=== PATIENT | female | born 1975 | race Caucasian/White ===

== ENCOUNTER 2019-10-30 12:11 | Outpatient (CLI) | payer OTHER, SELFPAY ==
--- NOTE | ~2019-10-30 | MMUS_ITS ---
EXAMINATION: MM diagnostic maddie RT w radha, US breast RT limited HISTORY: Follow-up right breast masses TECHNIQUE: Additional 3-D tomosynthesis images of the right breast were performed and synthetic 2-D i mages were generated. CAD analysis was submitted and interpreted. High resolution right breast ultras ound was performed. COMPARISON: Comparison to multiple prior studies sequentially, with oldest reviewed study dated 04/16/2019. FINDINGS: MAMMOGRAPHIC FINDINGS: The breasts are heterogenously dense, which may obscure small masses. There are persistent clustered masses in the upper outer quadrant of the right breast, middle third. Largest measure measures approx imately 12 mm. ULTRASOUND: High-resolution ultrasound of the right breast: At 9:00, 3 cm from the nipple there is a circumscribed hypoechoic mass measuring 1.4 cm maximum dimen maurizio without posterior features or internal vascularity. There is an adjacent stable complicated 1 cm cyst. IMPRESSION: 1. Stable right breast masses, likely benign. 2. Recommend 6 month follow-up right breast ultrasound BI-RADS category 3, probably benign findings. Reviewed, dictated and finalized at location A. IMPRESSION: 1. Stable right breast masses, likely benign. 2. Recommend 6 month follow-up right breast ultrasound BI-RADS category 3, probably benign findings.
== END 2019-10-30 12:12 | disposition home or self-care (01) ==
PROVIDERS: PCP Family Medicine; Visit Provider Family Medicine
DX: R92.8 Other abnormal and inconclusive findings on diagnostic imaging of breast (principal)
CPT/HCPCS: 76642; 77061; 77065; G0279

== ENCOUNTER → 2020-06-01 14:44 | Outpatient (CLI) | payer OTHER, SELFPAY ==
--- NOTE | ~2020-06-01 | US_ITS ---
US breast RT limited 06/01/2020 14:58 Indication: Follow-up right breast masses Procedure: High-resolution ultrasound of the right breast Comparison: 10/30/2019 Findings: At 9:00, 3 cm from the nipple, there are 2 adjacent oval hypoechoic masses measuring 1.3 an d 0.8 cm maximum dimension. There is subtle posterior shadowing with low level internal echoes and th allison masses. Also at this location there are 2 adjacent hypoechoic masses the smaller measuring 5 mm w ith posterior shadowing. At 9:00, 3 cm from the nipple there is a lobulated hypoechoic mass with dens e posterior shadowing measuring 1.7 cm. This mass appears slightly larger than on prior examination a nd the posterior shadowing is new compared with prior study. No internal vascularity. Impression: 1: Slightly increased size of lobulated hypoechoic right breast mass at 9:00, 3 cm from the nipple me asuring 1.7 cm maximum dimension. There is also new posterior shadowing. Ultrasound-guided right alberto st biopsy recommended. The remainder of the right breast masses are likely benign. Six-month follow-u p recommended. BI-RADS CATEGORY 4-SUSPICIOUS ABNORMALITY RECOMMENDATION: Ultrasound-guided right breast biopsy recommended. Reviewed, dictated and finalized at location A. GENCY MEDICAL TECH Impression: 1: Slightly increased size of lobulated hypoechoic right breast mass at 9:00, 3 cm from the nipple measuring 1.7 cm maximum dimension. There is also new poste rior shadowing. Ultrasound-guided right breast biopsy recommended. The remainde r of the right breast masses are likely benign. Six-month follow-up recommended . BI-RADS CATEGORY 4-SUSPICIOUS ABNORMALITY RECOMMENDATION: Ultrasound-guided right breast biopsy recommended.
== END ==
PROVIDERS: PCP Physician Assistant; Visit Provider Physician Assistant
DX: N63.10 Unspecified lump in the right breast, unspecified quadrant (principal); R92.8 Other abnormal and inconclusive findings on diagnostic imaging of breast
CPT/HCPCS: 76642

== ENCOUNTER 2020-06-09 10:23 | Outpatient (CLI) | payer OTHER, SELFPAY ==
--- NOTE | ~2020-06-09 | MM_ITS ---
MM post biopsy invasive RT DATE: 06/09/2020 11:55 INDICATION: Post right 9:00 breast biopsy mammogram TECHNIQUE: Digital ML and cc views of right breast COMPARISON: 06/09/2020 right ultrasound-guided breast biopsy FINDINGS: A radiopaque biopsy marker is noted within a mass in the outer mid right breast at approxim ately 9:00 position. IMPRESSION: Successful biopsy of right 9:00 breast mass Reviewed, dictated and finalized at Location A. Reviewed, dictated and finalized at location A. [place] PHARMACY MANAGER
--- NOTE | ~2020-06-09 | US_ITS ---
EXAMINATION: US GUIDED NEEDLE BIOPSY DATE: 06/09/2020 11:48 SIZING MACHINE OPERATOR INDICATION: 9:00 up to 1.7 cm right breast mass TECHNIQUE AND FINDINGS: The risks and potential benefits of the procedure were discussed with the patient, and written inform ed consent was obtained. Timeout procedure was performed. After sterile preparation of the right alberto st, 1% lidocaine was utilized for local anesthesia. A 14G spring-loaded biopsy gun needle was advanced to the edge of the region of interest from a later al approach utilizing sonographic guidance. A total of 5 tissue core samples were obtained through t he lesion. An Inrad tissue marker clip was then placed at the biopsy site. Hemostasis was achieved. A sterile bandage was applied. The patient tolerated procedure well and there was no evidence of immediate complication. The patien t was given verbal instructions prior to departing from the department. A two view mammogram was perf ormed to document tissue marker clip placement. The tissue samples were submitted to surgical patholo gy for histologic analysis. IMPRESSION: 1. Successful ultrasound guided biopsy of right 9:00 breast mass with biopsy marker placement. Kaci ramirez refer to pathology report for histologic analysis. Reviewed, dictated and finalized at Location A. Reviewed, dictated and finalized at location A. NG MACHINE OPERATOR IMPRESSION: 1. Successful ultrasound guided biopsy of right 9:00 breast mass with biopsy m arker placement. Please refer to pathology report for histologic analysis.
== END 2020-06-09 10:24 | disposition home or self-care (01) ==
LOC: ANHIMG 10:26
PROVIDERS: Family Provider Hospitalist; PCP Physician Assistant; Visit Provider Physician Assistant
DX: N63.10 Unspecified lump in the right breast, unspecified quadrant (principal)
CPT/HCPCS: 19083; 88305

== ENCOUNTER → 2020-06-17 07:43 | Outpatient (CLI) | payer OTHER, SELFPAY ==
--- NOTE | ~2020-06-17 | MR_ITS ---
EXAMINATION: MR brain/brain stem wo/w con DATE: 06/17/2020 08:47 INDICATION: Multiple sclerosis. TECHNIQUE: Magnetic resonance imaging (MRI) of the brain and brainstem was performed without and with 17 mL MultiHance intravenous contrast. Sequences included sagittal and axial T1-weighted FLAIR, axia l T1-weighted FSE, axial diffusion-weighted FS EPI, sagittal T2-weighted FLAIR, axial T2*-weighted GR E, axial T2-weighted FLAIR Propeller, and axial T2-weighted Propeller. Postcontrast sequences include d axial, coronal, and sagittal T1-weighted FSE. Apparent diffusion coefficient (ADC) maps were create d. COMPARISON: None. FINDINGS: There is no intracranial hemorrhage, acute infarction, or abnormal intracranial mass lesion . The ventricles are normal in size. There is mild mucosal thickening in right maxillary sinus. The o rbits are normal. The mastoid air cells are normal. IMPRESSION: 1. Normal brain. Reviewed, dictated and finalized at location A. H OPENER HAND IMPRESSION: 1. Normal brain.
[2020-06-17 08:13] LABS: Estimated Glomerular Filt Rate > 60
== END ==
PROVIDERS: PCP Physician Assistant; Visit Provider Family Medicine
DX: G35 Multiple sclerosis (principal)
CPT/HCPCS: 70553; A9577

== ENCOUNTER 2024-08-01 12:25 | Outpatient (CLI) | payer OTHER, SELFPAY ==
--- NOTE | ~2024-08-01 | XR_ITS ---
CHEST RADIOGRAPH, PA AND LATERAL CLINICAL HISTORY: SOB . COMPARISON: 12/01/2014 TECHNIQUE: PA and lateral views of the chest. FINDINGS The cardiomediastinal silhouette is unremarkable. The lungs are clear. Visualized osseous structures and soft tissues are unremarkable. IMPRESSION: No focal infiltrate or effusion. Reviewed, dictated and finalized at location A.
--- OUTSIDE RECORDS SUMMARY | 2024-08-01 12:36 | XMS_ITS | Encounter Summary ---
Author Organization [facility] Healthcare Address [address] [place] [address] Care Team Providers Care Trencher Driver Name Role Phone Arthur Coreas MD Primary Care Provider [phone] Encounter Details Date Type Department Care Team (Late st Contact Info) Description 09/17/2020 Telephone [facility] - Imaging [facility] [place] [address] Transcribed Order, Provider Social History Tobacco Use Types Packs/Day Years Used Date Smoking Tobacco: Former Cigarettes 0.5 20 1 982 - 2001 Smokeless Tobacco: Never AUDIT-C Answer Date Recorded Q1: How often do you have a drink containing alc ohol? 2-3 times a week 09/02/2020 Q2: How many drinks containi ng alcohol do you have on a typical day when you are drinking? 1 or 2 09/02/2020 Q3: How often do you have si x or more drinks on one occasion? 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
--- OUTSIDE RECORDS SUMMARY | 2024-08-01 12:36 | XMS_ITS | Patient Health Summary ---
Author Organization [facility] [employer] Address [address] [place] [address] Care Team Providers Care Master Sonar Technician Name Role Phone Unavailable Primary Care Provider Fuentes e Note from [facility],non-owned Affiliates and Associated Physician Practices is amultiple site organization consisting of ambulatory clinics and hospital sitesin [place], [place], [place] and [place]. This disclosure is being madepursuant to the Care Everywhere program and may not contain all information available regarding this patient. Last updated 18.[facility] [employer] Allergies * Bee-sting [Other] Medications * Be aware that medications may not be up to date on this document. Alwaysverify current medications with the patient. * ATORVASTATIN CALCIUM PO * venlafaxine (EFFEXOR) 37.5 MG tablet Take 75 mg by mouth once daily * Albuterol Sulfate (VENTOLIN HFA IN) * EPINEPHrine (EPIPEN) 0.3 MG/0.3ML auto-injector pen Inject 0.3 mg into muscle once Social History Tobacco Use Types Packs/Day Years Used Date Smoking Tobacco: Former Cigarettes Q uit: 2001 Smokeless Tobacco: Never Sex and Gender Information Value Date Recorded Sex Assigned at Not on file Gender Identity Not on file Sexual Orientation Not on file Last Filed Vital Signs Vital Sign Reading Time Taken Comments Blood Pressure 118/76 09/03/2017 10:26 AM CDT Pulse 66 09/03/2017 10:26 AM CDT Temperature 36.9 C (98.5 F) 09/03/2017 10:26 AM CDT Respiratory Rate 16 09/03/2017 10:26 AM CDT Oxygen Saturation 98% 09/03/2017 10:26 AM CDT Inhaled Oxygen Concentration - - Weight 77.1 kg (170 lb) 09/03/2017 10:26 AM CDT Height 170.2 cm (5' 7 ) 09/03/2017 10:26 AM CDT Body Mass Index 26.63 09/03/2017 10:26 AM CDT Procedures * STREP A SCREEN - POINT OF CARE (AMB) STL(Performed 09/03/2017) Performed for Acute nasopharyngitis * STREP A SCREEN - POINT OF CARE (AMB) STL(Performed 04/24/2017) Performed for Acute pharyngitis, unspecified etiology Results * STREP A SCREEN (09/03/2017) Only the most recent of2 resultswithin the time period is included. Strep A Rapid POCT Negative Negative Strep A Internal Control Present Lot # [id number] Expiration Date [id number] Throat ENTIRE THROAT (SURFACE REGION OF NECK) / Unknown 09/03/2017 Yariel Palacio STEMHOLE BORER AND TOPPER-DECONTAMINATION TECHNICIAN LAB - POINT OF CARE ORDERABLES
--- OUTSIDE RECORDS SUMMARY | 2024-08-01 12:36 | XMS_ITS | Continuity of Care Document ---
Author Organization [facility] Address [address] [place] [address] Phone Care Team Providers Care Buyer Agent Name Role Phone Mandie Bal MD Unavailable Unavailable Procedures Procedure Date SCREENING COLONOSCOPY ; HIGH RISK Advance Directives Directive Yes / No Effective Date File Name No Information Encounters Encounter Description Practice Location Reason(s) For Visit Diagnoses Date Provider Providers Copied on Encounter [facility], [address], [place], [place], [id number], tel:[phone] GI SCOPES No Information Valeriano Lockwood. [facility] [address], [id number] , . tel:[phone] Referring Provider: Arthur Coreas, [address] [place], [address]. tel:[phone] Family History Family Member Type Diagnosis Age At Onset No Information Payers Payer name Insurance type Covered constitution party ID Authoriza tion(s) [facility] [id number] Social History Type Description Quantity Date Captured Comments Sex Female Smoking Status No Information Sexual Orientation Straight or heterosexual Gender Identity Female Chief Complaint And Reason For Visit No Information Reason For Referral Reason For Referral No Information History Of Present Illness Encounter Date Complaint History Of Prese nt Illness No Information Functional Status Date Functional Assessmen t No Information Instructions Date Instruction Additional Infor mation No Information Assessments Type Assessment Date No Information Patient Care Teams Name Effective Dates (start - stop) Status Members No Information
--- OUTSIDE RECORDS SUMMARY | 2024-08-01 12:36 | XMS_ITS | Clinical Summary ---
Author Organization [facility] D Address [address] [place] [id number] Care Team Providers Care General Operator Name Role Phone Arthur Coreas MD Primary Care Provider [phone] Allergies Active Allergy Reactions Criticality Noted Date Comments Bee Sting Kit Other (See comments) Low 04/24/2017 Reacted to skin test, carries epi pen Medications cetirizine (ZyrTEC) 10 mg tablet Take 1 tablet (10 mg total) by mouth every morning Active multivit-minerals /folic acid (CENTRUM MULTIGUMMIES ORAL) every morning Active epinephrine (EPIPEN INJ) Inject as directed as needed Active magnesium oxide (MAG-OX) 250 mg (150.8 mg elemental) tabletIndications :hypomagnesemia 1 tablet (250 mg total) every morning Active albuterol HFA (PROVENTIL HFA,VENTOLIN HFA,PROAIR HFA) 90 mcg/actuation inhaler Inhale 2 puffs as needed for wheezing Active fenofibrate (TRIGLIDE) 160 mg tablet 3 Active rasagiline (AZILECT) 1 mg tablet Take 1 tablet (1 mg total) by mouth every morning 90 tablet 3 4 08/13/19 25 Active atogepant (Qulipta) 60 mg tablet Take 60 mg by mouth daily 90 tablet 3 4 Active topiramate (TOPAMAX) 50 mg tablet Take 1 tablet (50 mg total) by mouth 2 (two) times a day 180 tablet 3 4 Active buPROPion (WELLBUTRIN) 100 mg tablet Take 1 tablet (100 mg total) by mouth 2 (two) times a day 180 tablet 3 5 06/16/19 26 Active amantadine (SYMMETREL) 100 mg capsule Take 1 capsule (100 mg total) by mouth 2 (two) times a day 180 capsule 3 5 06/16/19 26 Active venlafaxine 225 mg tablet extended release 24hr 24 hr tablet Take 1 tablet (225 mg total) by mouth daily 30 tablet 11 5 06/16/19 26 Active Active Problems Problem Noted Date Diagnosed Date New daily persistent headache 12/28/2023 Migraine with aura and with status migrainosus, not intractable 09/25/2023 Insomnia due to medical condition 07/11/2022 Anxiety 01/28/2021 Assessment & Plan (01/28/2021 6:38 PM CDT): Venlafaxine XR 75 mg daily Parkinsonism 09/09/2020 Assessment & Plan (02/07/2024 12:41 PM CDT): She has parkinsonism stage 2 by history characterized by right sided tremor, bilateral rigidity and right greater than left bradykinesia, with reduced right armswing, and previous subjective benefit from ropinirole XL and now some improvement with rasagiline monotreatment with reduction of tremor, stiffness and even improved cognition initially. Based on the pattern and progression of symptoms so far, the most likely etiology remains idiopathic Parkinson disease. Genetic testing did not reveal any pathogenic variants. Ceruloplasmin was previously checked and was normal at 37; she believes she had slit lamp exam to query Danelle Kerry rings with her ophthalm but she will check into this so we can effectively exclude Emmanuel disease. She had good benefit from Requip (ropinirole) XL however, she developed some impulsivity around spending and previously had some impulsivity around sex as well as bothersome swelling in one ankle and sleep attacks . All of these resolved when she stopped ropinirole. She tried carbi/levo and got up to taking fair doses (up to 3 tabs qid) but she noted bothersome peak dose dystonia (painful cramping of the right foot, some worsened dexterity that may have been dystonia in the right hand), possible peak dose dyskinesia in the toes and worsening of her migraine headaches). The dystonia resolved after stopping carbi/levo. Rasagiline has provided some benefit (less than ropinirole) but no side effects, however, she is still somewhat bothered by her symptoms. At this point, we will try amantadine, which may also provide a mild anti-parkinsonian effect. 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 Her anxiety is mildly is okay on her current doses of max dose venlafaxine and bupropion and we will continue those today. She has constipation currently controlled with Dulcolax. She is still very bothered by her migraines (has had these since 3rd grade) and we have referred her to our headache specialists in the past and she now sees them but is still having headaches on Qulipta and low dose topirimate. Recs: 1. Same rasagiline, start amantadine. 2. Same bupropion, same venlafaxine ER. 3. Consider adding buspirone for anxiety. 3. Sent info on APDA [employer] channel exercises. 4. Continue to f/u with [facility] specialists. 5. She is interested in all PD research. Assessment & Plan (08/29/2023 8:41 PM CDT): She has parkinsonism stage 2 characterized by right sided tremor (not visible today), bilateral rigidity and right greater than left bradykinesia, with reduced right armswing, and subjective benefit from ropinirole and levodopa with reduction of tremor, slowness, stiffness, but dose-limiting side effects including dyskinesia, dystonia, ICD. Based on the pattern and progression of symptoms so far, the most likely etiology remains idiopathic Parkinson disease. Genetic testing did not reveal any pathogenic variants. Ceruloplasmin was normal at 37, 24hr urine copper was normal at 14, and slit lamp exam showed no Danelle Kerry rings, excluding Emmanuel disease. She is having good benefit from rasagiline and it is reasonable to continue current medication regimen. She would likely benefit from occupational therapy for hand movements. Continue rasagiline. Continue venlafaxine and bupropion. Our office sent referral for OT for dexterity. Continue exercise. Let me know if talking or movements in sleep change. Assessment & Plan (07/02/2023 11:40 AM PACKAGER HEAD): She has parkinsonism stage 2 by history characterized by right sided tremor, bilateral rigidity and right greater than left bradykinesia, with reduced right armswing, and subjective benefit from ropinirole XL with reduction of tremor, stiffness and even improved cognition initially. Based on the pattern and progression of symptoms so far, the most likely etiology remains idiopathic Parkinson disease. Genetic testing did not reveal any pathogenic variants. Ceruloplasmin was previously checked and was normal at 37. I have recommended in the past that she complete 24 hour urine copper and at last visit, we sent this to [facility] in [place], [place] but she still has not done it; and she believes she had slit lamp exam to query Danelle Kerry rings with her ophthalm but she will check into this so we can effectively exclude Emmanuel disease. She had good benefit from Requip (ropinirole) XL however, she developed some impulsivity around spending and previously had some impulsivity around sex as well as bothersome swelling in one ankle and sleep attacks . All of these resolved when she stopped ropinirole. She tried carbi/levo and got up to taking fair doses (up to 3 tabs qid) but she noted bothersome peak dose dystonia (painful cramping of the right foot, some worsened dexterity that may have been dystonia in the right hand), possible peak dose dyskinesia in the toes and worsening of her migraine headaches. These have resolved since stopping carbi/levo but now she is more bothered by the slowness, stiffness and tremor. At this point, we will try rasagiline but we discussed that it has a very mild anti-parkinsonian effect. We could also consider addition of amantadine. We could also consider trying low dose levodopa again in the future. Her anxiety is mildly worse as is mood she is on max dose of venlafaxine XL to 225 mg. We will add bupropion today. She has constipation currently controlled with Miralax. She is still very bothered by her migraines (has had these since 3rd grade) and we will refer her to our headache specialists today. Recs: 1. Start rasagiline, could consider adding amantadine as well 2. Start bupropion. 3. Same venlafaxine XR. 3. Sent info on APDA youtube channel exercises. 4. Have already sent order for 24 hour urine copper to [facility] in [place], [place]. 5. Will refer to our [facility] specialists today. 6. She is interested in all PD research. Assessment & Plan (01/30/2023 4:27 PM CDT): She has parkinsonism stage 2 by history characterized by right sided tremor, bilateral rigidity and right greater than left bradykinesia, with reduced right armswing, and subjective benefit from ropinirole XL with reduction of tremor, stiffness and even improved cognition initially. Based on the pattern and progression of symptoms so far, the most likely etiology remains idiopathic Parkinson disease. Genetic testing did not reveal any pathogenic variants. Ceruloplasmin was previously checked and was normal at 37. I have recommended in the past that she complete 24 hour urine copper and at last visit, we sent this to [facility] in [place], [place] but she still has not done it; and she believes she had slit lamp exam to query Danelle Kerry rings with her ophthalm but she will check into this so we can effectively exclude Emmanuel disease. She is having good benefit from Requip (ropinirole) XL however, possible side effects are becoming bothersome. She still has some impulsivity around spending and previously had some impulsivity around sex. She has also developed bothersome swelling in one ankle. It is unclear whether this is related to the ropinirole but it could be. Lastly and most importantly, she is noting sleep attacks that could come on quickly and she is no longer driving. This could also be related to ropinirole and she denies any apneic symptoms at night. We will stop the ropinirole XL and start carbi/levo. If symptoms of PD worsen, we may need a bigger dose but will start with titration to 1 tab tid. If these side effects (unilateral ankle swelling, sleep attacks) do not improve off of ropinirole, she may need further workup as they could be unrelated to PD. Her anxiety is mildly worse as is mood and we will increase venlafaxine XL to 225 mg (max dose). She has constipation currently controlled with Miralax. 1. Stop ropinirole, see if side effects (ankle swelling, daytime sleepiness, impulse control) improve. 2. Start carbi/levo as directed, report in 2 weeks or sooner if side effects. 3. Increase venlafaxine XR as directed. 4. Sent info on APDA youtube channel exercises. 5. Have already sent order for 24 hour urine copper to [facility] in [place], [place]. 6. She is interested in all PD research. Assessment & Plan (07/11/2022 2:32 PM PACKAGER HEAD): She has parkinsonism stage 2 by history characterized by right sided tremor, bilateral rigidity and right greater than left bradykinesia, with reduced right armswing, and subjective benefit from ropinirole XL with reduction of tremor, stiffness and improved cognition. Based on the pattern and progression of symptoms so far, the most likely etiology remains idiopathic Parkinson disease. Genetic testing did not reveal any pathogenic variants. Ceruloplasmin was previously checked and was normal at 37. I have recommended in the past that she complete 24 hour urine copper and we will send this to [facility] in [place] and she believes she had slit lamp exam to query Danelle Kerry rings with her ophthalm but she will check into this so we can effectively exclude Emmanuel disease. She is having good benefit from Requip (ropinirole) XL and we will not increase the dose as she does have some impulse control issues around spending and coin collecting as well as past impulses regarding sex. That said, she does not believe this issues are great enough to switch to carbi/levo at this time. Her anxiety is worse as is mood and we will increase venlafaxine. She has some issues with middle insomnia and can first try melatonin 3-6 mg 1-2 hours before bed and if no improvement, we could consider trazodone as she has no RBD. She has constipation and should start Miralax. 1. Same ropinirole, watch impulse control. 2. Start melatonin, consider trazodone if needed. 3. Increase venlafaxine. 4. Sent info on APDA youtube channel exercises. 5. Will send order for 24 hour urine copper to [facility] in [place], [place]. 6. She is interested in all PD research. Assessment & Plan (02/12/2022 11:50 AM CDT): She has parkinsonism stage 2 characterized by right sided tremor (not visible today), bilateral rigidity and right greater than left bradykinesia, with reduced right armswing, and subjective benefit from ropinirole with reduction of tremor. Based on the pattern and progression of symptoms so far, the most likely etiology remains idiopathic Parkinson disease. Genetic testing did not reveal any pathogenic variants. Ceruloplasmin was previously checked and was normal at 37. I have recommended in the past that she complete 24 hour urine copper and slit lamp exam to query Danelle Kerry rings to complete this evaluation, which could effectively exclude Emmanuel disease. Our office has sent orders but there are no results available for review. She is having good benefit from Requip (ropinirole) XL but we may be able to adjust the dosage to try to increase quality and consistency of benefit including control of hand movements and maybe increased dexterity. 1. Increase ropinirole XL from 8mg to 12mg at night. She will send update in 2-3 weeks on dexterity and wordfinding. If wordfinding is worse we could consider tapering ropinirole and changing to carbidopa-levodopa. Assessment & Plan (02/03/2021 2:56 PM CDT): She has Parkinson disease stage 1 characterized by right sided rigidity and mild bradykinesia, with reduced right armswing. She has subjective benefit from ropinirole. Based on the pattern and progression of symptoms so far, the most likely etiology may be idiopathic Parkinson disease. Her mother is adopted and she does not know her mother's family history, so it may be reasonable to consider a genetic etiology given her young age at onset, although this may not oil changer for her symptoms. Given her age it is reasonable to exclude other etiologies including Emmanuel disease. Her ceruloplasmin was previously checked and was normal at 37. It is reasonable to obtain 24 hour urine copper and slit lamp exam to query Danelle Kerry rings to complete this evaluation, which would effectively exclude Emmanuel disease if normal. She is reasonably well treated at this time. I suggested continuing the same dose of ropinirole 8mg ER each morning. She will call me if symptoms change and we can consider an adjustment in medication as needed. She would benefit from physical therapy to establish a baseline and for recommendations for exercises to keep balance and walking as sharp as possible. 1. Our office to send orders for a 24-hour urine copper test and referral for a slit-lamp exam to look for Danelle-Kerry rings, can be done locally, with instructions to fax results to our office. 2. Continue same ropinirole ER 8mg daily. 3. I will send referral to [facility] physical therapy. 4. I will send referral to Genetics clinic. Assessment & Plan (01/28/2021 6:37 PM CDT): Mild masked facies, mild rigidity/cogwheeling right arm, decreased rapid altered movements in the right hand, mild shuffling right leg and decreased right arm swing with ambulation. MRI scan of the brain 06/17/20: Mild ventriculomegaly, but no obstruction. Mild generalized atrophy. No white matter lesions. Ropinrole XL 8 mg daily. Risks discussed including leg edema, hypersomnolence in addictive behaviors such as excessive gambling or shopping. Referral to [facility]; appointment with Dr. Ritesh Brennan scheduled on February 02, 2021. Will defer to Dr. Brennan for genetic screening, but no family history of Parkinson's disease. Breast mass 07/12/2020 Resolved Problems Problem Noted Date Diagnosed Date Resolved Date Abnormality of gait due to i mpairment of balance 09/09/2020 01/28/2021 Encounters Date Type Department Care Team Description 07/18/2024 11:00 AM PACKAGER HEAD Telemedicine [facility] General Neurology [address] [place] [address] Kailey Roa PA Migraine with aura and with status migrainosus, not intractable (Primary Dx); New daily persistent headache; Dizziness and giddiness; Weight loss 05/26/2024 Telephone [facility] Movement Disorders [address] [place] [phone] Kristine Gambino RN 05/23/2024 Documentation [facility] Movement Disorders [address] [place] [phone] Yoly Juarez CMA 05/16/2024 8:57 AM PACKAGER HEAD - 05/16/2024 11:59 PM PACKAGER HEAD Hospital Encounter [facility] Bld[address] 1 [facility] [address] [place] [address] Other abnormal and inconclusive findings on diagnostic imaging of breast Discharge Disposition: Discharge to home or self care 05/15/2024 Telephone [facility] Movement Disorders [address] [place] [phone] Kristine Gambino RN 05/09/2024 8:36 AM PACKAGER HEAD - 05/09/2024 11:59 PM PACKAGER HEAD Hospital Encounter [facility] 1 Breast [facility] [address] [facility] [address] [place] [address] Screening mammogram, encounter for Discharge Disposition: Discharge to home or self care from Last 3 Months Immunizations Immunization Administration Dates Next Due Influenza, Unspecified 04/26/2021(Deferred: Yelena ent decision) Surgical History Surgery Date Site/Laterality Comments WISDOM TOOTH EXTRACTION COLONOSCOPY BREAST BIOPSY Medical History Medical History Date Comments Dyslipidemia Depression Family History Medical History Relation Name Comments Colon cancer Father Colon cancer Father's Brother Anesthesia problems Neg Hx Parkinsonism Neg Hx Relation Name Status Comments Father Father's Brother Mother Other her mother is a dopted Social History Tobacco Use Types Packs/Day Years Used Date Smoking Tobacco: Former Cigarettes 0.5 20 1 982 - 2001 Smokeless Tobacco: Never Tobacco Cessation:Counseling Given: Not Answered AUDIT-C Answer Date Recorded Q1: How often [...] on file Legal Sex Female 9:35 AM PACKAGER HEAD Gender Identity Female 09/06/2020 8:02 PM CDT Sexual Orientation Straight 07/11/2020 3: 26 PM PACKAGER HEAD Occupation Industry Job Start Date Job End Date 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 Not on file Not on file Not on file Obstetrics History Para Term AB IAB SAB Ectopic Multiple Livin g Live Births 4 3 3 Date Outcome GA Total Labor Labor/2nd/3rd Weight Sex Type Anes PTL Tanya A1 A5 Name Clin Term Term Term Last Filed Vital Signs Vital Sign Reading Time Taken Comments Blood Pressure 120/83 09/25/2023 9:45 AM CDT Pulse 71 09/25/2023 9:45 AM CDT Temperature 36.9 C (98.5 F) 09/25/2023 9:45 AM CDT Respiratory Rate 20 04/26/2021 9:56 AM PACKAGER HEAD Oxygen Saturation 100% 09/25/2023 9:45 AM CDT Inhaled Oxygen Concentration - - Weight 89.4 kg (197 lb) 09/25/2023 9:45 AM CDT Height 167.6 cm (5' 6 ) 09/25/2023 9:45 AM CDT Body Mass Index 31.8 09/25/2023 9:45 AM CDT Plan of Treatment Health Maintenance Due Date Last Done Comments Cervical Cancer Screening 1974 Colon Cancer Screening-Colonoscopy 1974 Depression Screening 1974 Hepatitis C Screening 1974 DTaP/Tdap/Td Vaccine (1 - Tdap) 1985 Hepatitis B Screening 1992 Regular Well Visit/Exam 18-64 1992 Covid-19 Vaccine (2 - season) 2024 02/18/2021 Influenza Vaccine (#1) 2024 Zoster Vaccine (1 of 2) 2024 Breast Cancer Screening-Mammogram 05/16/2025 05/16/2024, 05/09/2024, 09/15/2022, Additional history exists Pneumococcal vaccine <65 Aged Out No longer eligible based on patient's age to complete this topic Procedures Procedure Name Priority Date/Time Associated Diagnosis Comments DIAGNOSTIC MAMMOGRAM BILATERAL W SPEEDY Schedule Routine, Read Routine (OP Routine) 05/16/2024 9:20 AM PACKAGER HEAD Other abnormal and inconclusive findings on diagnostic imaging of breast SCREENING MAMMOGRAM BILATERAL W SPEEDY Schedule Routine, Read Routine (OP Routine) 05/09/2024 8:57 AM PACKAGER HEAD Screening mammogram, encounter for from Last 3 Months Results * Diagnostic Mammogram Bilateral W Speedy (05/16/2024 9:20 AM PACKAGER HEAD) Anatomical Region Laterality Modality Breast Bilateral Mammography 05/16/2024 9:30 AM PACKAGER HEAD Narrative 05/16/2024 9:36 AM PACKAGER HEAD EXAM DESCRIPTION: DIAGNOSTIC MAMMOGRAM BILATERAL W SPEEDY REASON FOR STUDY: 48-year-old female recalled from screening mammogram for right breast grouped calcifications and a left breast asymmetry. TECHNIQUE: Full field LM views of the bilateral breasts and spot compression MLO view of the left breast were obtained with digital technique using breast tomosynthesis with C view. Spot magnification CC and LM views of the right breast were obtained with 2D digital technique. COMPARISON: 05/09/2024, 09/15/2022 FINDINGS: DENSITY: There are scattered areas of fibroglandular density. MAMMOGRAM FINDINGS: There is a 6 mm group of calcifications at the 9 o'clock position of the right breast, middle depth, which is new since August 2022. These calcifications appear amorphous/smudgy on the spot magnification CC view possible dependent layering on the spot magnification LM view, suggesting benign milk of calcium. There is no definite associated mass or architectural distortion. The asymmetry of concern in the lower left breast, posterior depth, on the MLO view effaces with spot compression, evidence of benign summation artifact of normal dense tissue. There is no suspicious finding in the left breast on mammogram. IMPRESSION: 1. Right breast 6 mm group of calcifications at 9 o'clock, middle depth, is probably benign. This may represent benign milk of calcium. Short-term follow-up with right diagnostic mammogram in 6 months is recommended. 2. The MLO view asymmetry of concern in the posterior lower left breast disperses with spot compression, evidence of benign superimposed dense tissue. 3. No new suspicious finding in the left breast on mammogram. Screening mammography of the left breast in 1 year is recommended. BIRADS: 3 - Probably benign finding, short-interval follow-up suggested. I discussed these findings and recommendations with the patient at the time of the examination. THIS IS AN ELECTRONICALLY VERIFIED FINAL REPORT 05/16/2024 9:36 AM - Electronically signed by Miguel Gu M.D., MD: Report ID: [id number] Reading Location: [facility] us Arthur Coreas MD IMG MAMMO PROCEDURES Final Re sult * (ABNORMAL) Screening Mammogram Bilateral W Speedy (05/09/2024 8:57 AM PACKAGER HEAD) Anatomical Region Laterality Modality Breast Bilateral Mammography Addenda Addendum by Lila Rowland MD on 05/12/2024 1:10 PM PACKAGER HEAD CORRECTION TO IMPRESSION: IMPRESSION: BI-RADS ATLAS category (overall): 0 - Incomplete: Needs Additional Imaging Evaluation Indeterminate bilateral breast asymmetries. Further evaluation with bilateral diagnostic mammography and possible diagnostic breast ultrasound is recommended. The patient has been or will be contacted.Indeterminate bilateral breast asymmetries. Further evaluation with bilateral diagnostic mammography and possible diagnostic breast ultrasound is recommended. The patient has been or will be contacted. Impressions 05/09/2024 11:10 AM PACKAGER HEAD BI-RADS ATLAS category (overall): 0 - Incomplete: Needs Additional Imaging Evaluation There is no mammographic evidence of malignancy. A 1 year screening mammogram is recommended. The patient has been or will be contacted. We recommend annual screening mammography for women at average risk of breast cancer beginning at age 40, based on guidelines of the [place] [employer] (ACR Practice Parameter for the Performance of Screening and Diagnostic Mammography) and [place] [employer]. For women with and elevated risk of breast cancer, please refer to the ACR Practice Parameter for specific screening recommendations. The patient will be entered into a reminder system with a target due date of 1 year for her next screening exam. Narrative 05/09/2024 11:10 AM PACKAGER HEAD Screening Mammogram Bilateral W Speedy: 05/09/24 The study was acquired using full field digital technology and interpreted from soft copy. 2D digital mammographic views, as well as 3D digital tomosynthesis were performed in the CC and MLO projections. This study was resulted using Computer-Aided Detection (CAD). CLINICAL: Screening mammogram, encounter for. No relevant medical history has been documented for this patient. No known family history of breast cancer. COMPARISONS: 09/15/2022 Screening Mammogram Bilateral W Speedy 09/02/2020 US Guided Breast Localization Right 09/02/2020 Radiologic Examination of Surgical Specimen 09/02/2020 Mammo Post Clip Placement Right 09/02/2020 MEDICAL IMAGING MAMMOGRAPHY SUBFOLDER BREAST TISSUE: There are scattered areas of fibroglandular density. FINDINGS: There is a cluster of calcifications at the 9 o'clock position of the right breast, middle depth at the site of the previous biopsy. There is also an symmetry in the posterior left breast seen on the MLO view only. No otherIndeterminate bilateral breast asymmetries. Further evaluation with bilateral diagnostic mammography and possible diagnostic breast ultrasound is recommended. The patient has been or will be contacted. suspicious masses, suspicious calcifications, or other suspicious findings are seen within either breast. us Self Screening Mammogram IMG MAMMO PROCEDURES Ed ited Result - Final from Last 3 Months Insurance [facility] CHOICE PLUS [facility] CHO[facility] PLUS [facility] CHOICE PLUS Care Teams General Operator Relationship Specialty Start Date End Date Arthur Coreas MD [address] [place] [address] PCP - General Family Medicine 06/28/20
--- OUTSIDE RECORDS SUMMARY | 2024-08-01 12:36 | XMS_ITS | Referral Summary ---
Author Organization [facility] [employer] Address [address] [address] Care Team Providers Care Ornamental Plasterer Helper Name Role Phone Unavailable Primary Care Provider Unavailabl e Source Comments [facility] [employer],non-owned Affiliates and Associated Physician Practices is amultiple site organization consisting of ambulatory clinics and hospital sitesin [place], [place], [place] and [place]. This disclosure is being madepursuant to the Care Everywhere program and may not contain all information available regarding this patient. Last updated 18.[facility] [employer] Allergies Active Allergy Reactions Criticality Noted Date Comments Bee-sting [Other] 04/24/2017 Medications * Be aware that medications may not be up to date on this document. Alwaysverify current medications with the patient. Medication Sig Dispensed Refills Start Date End Date Status ATORVASTATIN CALCIUM PO Active venlafaxine (EFFEXOR) 37.5 MG tablet Take 75 mg by mouth once daily Active Albuterol Sulfate (VENTOLIN HFA IN) Active EPINEPHrine (EPIPEN) 0.3 MG/0.3ML auto-injector pen Inject 0.3 mg into muscle once Active Social History Tobacco Use Types Packs/Day Years [...] Mass Index 26.63 09/03/2017 10:26 AM CDT Plan of Treatment Not on file
--- OUTSIDE RECORDS SUMMARY | 2024-08-01 12:36 | XMS_ITS | Referral Summary ---
Author Organization [facility] Address [address] [place] [address] Care Team Providers Care Disaster Recovery Specialist Name Role Phone Arthur Coreas MD Primary Care Provider [phone] Encounters Date Type Department Care Team Description 07/18/2024 11:00 AM MANAGER LOGISTIC Telemedicine [facility] General Neurology [address] [place] [address] Kailey Roa PA Migraine with aura and with status migrainosus, not intractable (Primary Dx); New daily persistent headache; Dizziness and giddiness; Weight loss 05/26/2024 Telephone [facility] Movement Disorders [address] [place] [address] [phone] Kristine Gambino RN 05/23/2024 Documentation [facility] Movement Disorders [address] [place] [address] [phone] Yoly Juarez CMA 05/16/2024 8:57 AM MANAGER LOGISTIC - 05/16/2024 11:59 PM MANAGER LOGISTIC Hospital Encounter [facility] Medical Office Bldg 1 Breast [facility] [address] [place] [address] Other abnormal and inconclusive findings on diagnostic imaging of breast Discharge Disposition: Discharge to home or self care 05/15/2024 Telephone [facility] Movement Disorders [address] [place] [address] [phone] Kristine Gambino, RN 05/09/2024 8:36 AM MANAGER LOGISTIC - 05/09/2024 11:59 PM MANAGER LOGISTIC Hospital Encounter [facility] Medical Office Bldg 1 Breast [facility] [facility] [address] [place] [address] Screening mammogram, encounter for Discharge Disposition: Discharge to home or self care from Last 3 Months Allergies Active Allergy Reactions Criticality Noted Date [...] for anxiety. 3. Sent info on [employer] youtube channel exercises. 4. Continue to f/u with [...] change. Assessment & Plan (07/02/2023 11:40 AM MANAGER LOGISTIC): She has parkinsonism stage 2 by history [...] at last visit, we sent this to [facility] in [place], [place] but she still has not done [...] order for 24 hour urine copper to [facility] in [place]. 5. Will refer to our [place] [...] at last visit, we sent this to [facility] in [place] but she still has not done [...] order for 24 hour urine copper to [facility] in [place]. 6. She is interested in all PD research. Assessment & Plan (07/11/2022 2:32 PM MANAGER LOGISTIC): She has parkinsonism stage 2 by history [...] copper and we will send this to [facility] in [place] and she believes she had slit [...] order for 24 hour urine copper to [facility] in [place]. 6. She is interested in all [...] age at onset, although this may not loom changer for her symptoms. Given her age [...] daily. 3. I will send referral to [facility] physical therapy. 4. I will send [...] as excessive gambling or shopping. Referral to [facility] Movement Disorders Clinic; appointment with Dr. Ritesh Brennan scheduled on February 02, 2021. Will defer to Dr. Brennan for genetic screening, but no family history of Parkinson's disease. 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 Not on file Not on file Not on file Last Filed Vital Signs Vital Sign Reading Time Taken Comments Blood Pressure 120/83 09/25/2023 9:45 AM CDT Pulse 71 09/25/2023 9:45 AM CDT Temperature 36.9 C (98.5 F) 09/25/2023 9:45 AM CDT Respiratory Rate 20 04/26/2021 9:56 AM MANAGER LOGISTIC Oxygen Saturation 100% 09/25/2023 9:45 AM CDT Inhaled Oxygen Concentration - - Weight 89.4 kg (197 lb) 09/25/2023 9:45 AM CDT Height 167.6 cm (5' 6 ) 09/25/2023 9:45 AM CDT Body Mass Index 31.8 09/25/2023 9:45 AM CDT Plan of Treatment Not on file Procedures Procedure Name Priority Date/Time Associated Diagnosis Comments DIAGNOSTIC MAMMOGRAM BILATERAL W SPEEDY Schedule Routine, Read Routine (OP Routine) 05/16/2024 9:20 AM MANAGER LOGISTIC Other abnormal and inconclusive findings on diagnostic imaging of breast SCREENING MAMMOGRAM BILATERAL W SPEEDY Schedule Routine, Read Routine (OP Routine) 05/09/2024 8:57 AM MANAGER LOGISTIC Screening mammogram, encounter for from Last 3 Months Results * Diagnostic Mammogram Bilateral W Speedy (05/16/2024 9:20 AM MANAGER LOGISTIC) Anatomical Region Laterality Modality Breast Bilateral Mammography 05/16/2024 9:30 AM MANAGER LOGISTIC Narrative 05/16/2024 9:36 AM MANAGER LOGISTIC EXAM DESCRIPTION: DIAGNOSTIC MAMMOGRAM BILATERAL W SPEDEY REASON FOR STUDY: 48-year-old female recalled from [...] AM - Electronically signed by Miguel Gu M.D. MD: Report ID: [id number] Reading [facility] Arthur Coreas MD IMG MAMMO PROCEDURES Final Re sult * (ABNORMAL) Screening Mammogram Bilateral W Speedy (05/09/2024 8:57 AM MANAGER LOGISTIC) Anatomical Region Laterality Modality Breast Bilateral Mammography Addenda Addendum by Lila Rowland MD on 05/12/2024 1:10 PM MANAGER LOGISTIC CORRECTION TO IMPRESSION: IMPRESSION: BI-RADS ATLAS category [...] will be contacted. Impressions 05/09/2024 11:10 AM MANAGER LOGISTIC BI-RADS ATLAS category (overall): 0 - Incomplete: Needs Additional Imaging Evaluation There is no mammographic evidence of malignancy. A 1 year screening mammogram is recommended. The patient has been or will be contacted. We recommend annual screening mammography for women at average risk of breast cancer beginning at age 40, based on guidelines of the [employer] (ACR Practice Parameter for the Performance of Screening and Diagnostic Mammography) and [employer]. For women with and elevated risk of breast cancer, please refer to the ACR Practice Parameter for specific screening recommendations. The patient will be entered into a reminder system with a target due date of 1 year for her next screening exam. Narrative 05/09/2024 11:10 AM MANAGER LOGISTIC Screening Mammogram Bilateral W Speedy: 05/09/24 The [...] - Final from Last 3 Months Insurance [facility] CHOICE PLUS [facility] CHOICE PLUS [facility] CHOICE PLUS Care Teams Disaster Recovery Specialist Relationship Specialty Start Date End Date Arthur Coreas MD [address] [place] [address] [place] [address] PCP - General Family Medicine 06/28/20
--- OUTSIDE RECORDS SUMMARY | 2024-08-01 12:36 | XMS_ITS | Clinical Summary ---
Author Organization [facility] [employer] Address [facility] [place] [address] Care Team Providers Care Tester Operator Helper Name Role Phone Unavailable Primary Care Provider Unavailabl e Source Comments [facility] [employer],non-owned Affiliates and Associated Physician Practices is amultiple site organization consisting of ambulatory clinics and hospital sitesin [place], [place], [place] and [place]. This disclosure is being madepursuant to the Care Everywhere program and may not contain all information available regarding this patient. Last updated 18.[facility] [employer] Allergies Active Allergy Reactions Criticality Noted Date [...] Inject 0.3 mg into muscle once Active Family History Medical History Relation Name Comments Cancer - Colon Father Hyperlipidemia Father Hyperlipidemia Mother Relation Name Status Comments Father Mother Social History Tobacco Use Types Packs/Day Years [...] 09/03/2017 10:26 AM CDT Plan of Treatment Health Maintenance Due Date Last Done Comments COLOGUARD (AGES 45-75) - COL ON CA SCREENING 1974 COLON MONITORING 1974 COLONOSCOPY - COLON CA SCREENING 1974 CT COLONOGRAPHY - COLON CA SCREENING 1974 Colorectal Cancer Screening 1974 FIT - COLON CA SCREENING 1974 FLEX SIG - COLON CA SCREENING 1974 MAMMOGRAM 1974 PAP SMEAR 1974 HIV SCREENING 1989 HEPATITIS C SCREENING 06/05/1992 DTAP/TDAP/TD VACCINES (1 - Tdap) 1993 HEPATITIS B VACCINE (1 of 3 - 19+ 3-dose series) 1993 SCREENING FOR DIABETES 04/24/2017 COVID-19 VACCINE (1 - 2023-2 5 season) 2024 INFLUENZA VACCINE (#1) 2024 DEPRESSION SCREENING 05/21/2024 PNEUMOCOCCAL VACCINE 50+ (1 of 1 - PCV) 2024 ZOSTER VACCINE (1 of 2) 2024 HIB VACCINE Aged Out No longer eligi ble based on patient's age to complete this topic HPV VACCINE Aged Out No longer eligi ble based on patient's age to complete this topic MENINGOCOCCAL (Group B) VACC INE SHARED DECISION-MAKING Aged Out No longer eligibl e based on patient's age to complete this topic MENINGOCOCCAL GROUPS A/C/Y/W VACCINE Aged Out No longer eligible b ased on patient's age to complete this topic PNEUMOCOCCAL VACCINE Aged Out No long er eligible based on patient's age to complete this topic
== END 2024-08-01 12:26 | disposition home or self-care (01) ==
PROVIDERS: PCP Family Medicine
DX: R06.02 Shortness of breath (principal); R63.4 Abnormal weight loss
CPT/HCPCS: 71046

== ENCOUNTER 2025-03-16 01:50 | Day surgery (SDC) | payer OTHER, BC, SELFPAY ==
[2025-03-04 14:18] VITALS: BMI 18.8
--- OUTSIDE RECORDS SUMMARY | 2025-03-16 01:52 | XMS_ITS | Encounter Summary ---
Author Organization [facility] Address [address] [place] [address] Care Team Providers Care Design Supervisor Name Role Phone Arthur Coreas MD Primary Care Provider [phone] Encounter Details Date Type Department Care Team (Late st Contact Info) Description 02/16/2025 Results Follow-Up [facility] Medical Group Obstetrical Gynecology [address] [phone] Chetna Roblero MD [facility] [address] Surgical pathology Social History Tobacco Use Types Packs/Day Years Used Date Smoking Tobacco: Former Cigarettes 0.5 20 1 982 - 2001 Smokeless Tobacco: Never Alcohol Use Standard Drinks/Week Comments Never 0 (1 standard drink = 0.6 oz pur e alcohol) Social Connection and Isolation Panel Answer Date Recorded In a typical week, how many times do you talk on the phone with family, friends, or neighbors? More than three times a week 01/28/2025 How often do you get togethe r with friends or relatives? More than three times a week 01/28/2025 How often do you attend chur ch or sabianist services? 1 to 4 times per year 01/28/2025 Do you belong to any clubs o r organizations such as buddhism groups, unions, fraternal or athletic groups, or school groups? No 01/28/2025 How often do you attend meet ings of the clubs or organizations you belong to? Never 01/28/2025 Are you , , di vorced, , never , or living with a partner? 01/28/2025 AUDIT-C Answer Date Recorded Q1: How often do you have a drink containing alcohol? Never 02/03/2025 Q2: How many drinks containi ng alcohol do you have on a typical day when you are drinking? Patient does not drink Q3: How often do you have si x or more drinks on one occasion? Never 02/03/2025 Overall Financial Resource Strain (CARDIA) Answe r Date Recorded How hard is it for you to pa y for the very basics like food, housing, medical care, and heating? Not very hard 01/28/2025 Hunger Vital Sign Answer Date Recorded Within the past 12 months, y ou worried that your food would run out before you got the money to buy more. Never true 01/29/20 25 Within the past 12 months, t he food you bought just didn't last and you didn't have money to get more. Never true 01/28/2025 PRAPARE - Transportation Answer Date Re corded In the past 12 months, has l ack of transportation kept you from medical appointments or from getting medications? No 01/19 In the past 12 months, has l ack of transportation kept you from meetings, work, or from getting things needed for daily living? No 01/28/2025 Housing Stability Vital Sign Answer Crow e Recorded In the last 12 months, was t here a time when you were not able to pay the mortgage or rent on time? No 01/28/2025 In the past 12 months, how m any times have you moved where you were living? 0 01/28/2025 At any time in the past 12 m [facility], were you homeless or living in a jail (including now)? No 01/28/2025 [facility] Utilities Answer Date Recorded In the past 12 months has th e electric, gas, oil, or water company threatened to shut off services in your home? No 01/28/2025 Personal Safety Answer Date Recorded Have you ever been in or are you currently in a harmful physical or emotional relationship or is someone making you feel afraid or unsafe? 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
--- OUTSIDE RECORDS SUMMARY | 2025-03-16 01:52 | XMS_ITS | Clinical Summary ---
Author Organization [facility] [employer] Address [facility] [place] [address] Care Team Providers Care Cardiopulmonary Technician And Eeg Tech Name Role Phone Unavailable Primary Care Provider Unavailabl e Source Comments [facility] [employer],non-owned Affiliates and Associated Physician Practices is amultiple site organization consisting of ambulatory clinics and hospital sitesin [place], [place], [place] and [place]. This disclosure is being madepursuant to the Care Everywhere program and may not contain all information available regarding this patient. Last updated 18.[employer] Allergies Active Allergy Reactions Criticality Noted Date Comments Bee-sting [Other] 04/24/2017 Medications * Be aware that medications may not be up to date on this document. Alwaysverify current medications with the patient. ATORVASTATIN CALCIUM PO Active venlafaxine (EFFEXOR) 37.5 [...] Cigarettes Q uit: 2001 Smokeless Tobacco: Never Comments No Sex and Gender Information Value Date Recorded Sex Assigned at Not on file Legal Sex Female 12:39 PM MIDDLEWARE ARCHITECT Gender Identity Not on file Sexual Orientation [...] 10:26 AM CDT Height 170.2 cm (5' 7) 09/03/2017 10:26 AM CDT Body Mass Index [...] - COLON CA SCREENING 1974 MAMMOGRAM 1974 HIV SCREENING 1989 HEPATITIS C SCREENING 06/05/1992 DTAP/TDAP/TD VACCINES (1 - Tdap) 1993 HEPATITIS B VACCINE (1 of 3 - 19+ 3-dose series) 1993 SCREENING FOR DIABETES 04/24/2017 DEPRESSION SCREENING 05/21/2024 PNEUMOCOCCAL VACCINE 50+ (1 of 1 - PCV) 2024 ZOSTER VACCINE (1 of 2) 2024 COVID-19 VACCINE (1 - 2023-2 5 season) 2025 INFLUENZA VACCINE (#1) 2025 HIB VACCINE Aged Out No longer eligi [...] on patient's age to complete this topic Insurance [facility]
--- OUTSIDE RECORDS SUMMARY | 2025-03-16 01:52 | XMS_ITS | Encounter Summary ---
Author Organization [facility] Address [address] [place] [address] Phone Care Team Providers Care Power Cleaner Operator Name Role Phone Arthur Coreas MD Primary Care Provider [phone] Encounter Details Date Type Department Care Team (Late st Contact Info) Description 01/27/2025 Results Follow-Up [facility] Medicine Movement Disorders [address] Advanced Medicine 7th [place] [address] Karen Soria MD [address] [place] [address] Urinalysis reflex to microscopic and culture Urine, CBC with auto differential, Urinalysis, microscopic only, Additional followed-up results: 7 Social History Tobacco Use Types Packs/Day Years Used Date Smoking Tobacco: Former Cigarettes 0.5 20 1 982 - 2002 Smokeless Tobacco: Never Social Connection and Isolation Panel Answer Date Recorded In a typical week, how many times do you talk on the phone with family, friends, or neighbors? More than three times a week 01/28/2025 How often do you get togethe r with friends or relatives? More than three times a week 01/28/2025 How often do you attend [facility] or jain services? 1 to 4 times per year 01/28/2025 Do you belong to any clubs o r organizations such as islam groups, unions, fraternal or athletic groups, or school groups? No 01/28/2025 How often do you attend meet ings of the clubs or organizations you belong to? Never 01/28/2025 Are you , , di vorced, , never , or living with a partner? 01/28/2025 AUDIT-C Answer Date Recorded Q1: How often do you have a drink containing alcohol? Never 01/28/2025 Q2: How many drinks containi ng alcohol do you have on a typical day when you are drinking? Patient does not drink Q3: How often do you have si x or more drinks on one occasion? Never 01/28/2025 Overall Financial Resource Strain (CARDIA) Answe r [...] any time in the past 12 m [facility], were you homeless or living in a senior living (including now)? No 01/28/2025 [facility] Utilities Answer Date Recorded In the past 12 months has th e electric, gas, oil, or water company threatened to shut off services in your home? No 01/28/2025 Personal Safety Answer Date Recorded Have you ever been in or are you currently in a harmful physical or emotional relationship or is someone making you feel afraid or unsafe? 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 Never 01/28/2025 4:36 AM MATILDET Brenda Angulo RN Q2: How many drinks containing alcohol do you have on a typical day when you are drinking? Patient does not drink 01/28/2025 4:36 AM MATILDET Brenda Angulo RN Q3: How often do you have six or more drinks on one occasion? Never 01/28/2025 4:36 AM MATILDET Brenda Angulo RN documented as of this encounter Miscellaneous Notes * Telephone Encounter - Kristine Gambino RN - 01/27/2025 2:53 PM CDT Admin team- Can you please send these labs to her PCP? Thanks! Sent: Good afternoon, Dr. Parker wanted to let you know about the lab results. She thinks you may have a UTI and should contact the PCP for antibiotics. You also have some anemia, but that should not affect psychosis or hallucinations. We will forward the results to your PCP and reach out as soon as we get the results of the culture. Take Care, Kristine SANDOVAL, RN Movement Disorders Department of Neurology ----- Message from Karen Soria MD sent at 01/27/2025 1:40 PM CDT ----- Please ask her to contact her PCP to show the UA results. We are waiting for cultures. I think she may have a UTI and need antibiotics. She also has some anemia in the CBC, but that should not affect her psychosis or hallucinations. Will contact them as soon as I get the results of the culture. ----- Message ----- From: Interface, Lab Results In Sent: 01/27/2025 12:57 PM CDT To: Karen Soria MD documented in this encounter Plan of Treatment Not on file documented as of this encounter Visit Diagnoses Not on filedocumented in this encounter Care Teams Power Cleaner Operator Relationship Specialty Start Date End Date Arthur Coreas MD [address] [place] [address] PCP - General Family Medicine 06/28/20 documented as of this encounter
--- OUTSIDE RECORDS SUMMARY | 2025-03-16 01:52 | XMS_ITS | Clinical Summary ---
Author Organization [facility] Address [address] [place] [id number] Care Team Providers Care Starchmaker Name Role Phone Arthur Coreas MD Primary Care Provider [phone] Allergies Active Allergy Reactions Criticality Noted Date Comments Amantadine Hallucinations Medium 03/10/2025 Severe psychosis, landed her in hospital. Venom-Honey Bee Unknown 11/24/2024 She had a positive allergy test for bee's. Has Epi pen on hand Medications cetirizine (ZyrTEC) 10 mg tablet Take 1 tablet (10 mg total) by mouth every morning Active multivit-minera ls/folic acid (CENTRUM MULTIGUMMIES ORAL) Take 1 tablet by mouth every morning Active epinephrine (EPIPEN INJ) Inject as directed as needed Active magnesium oxide (MAG-OX) 250 mg (150.8 mg elemental) tabletIndicatio ns:hypomagnesem ia Take 1 tablet (250 mg total) by mouth every morning Active albuterol HFA (PROVENTIL HFA,VENTOLIN HFA,PROAIR HFA) 90 mcg/actuation inhaler Inhale 2 puffs as needed for wheezing Active fenofibrate (TRIGLIDE) 160 mg tablet Take 1 tablet (160 mg total) by mouth daily 11/28/19 23 Active topiramate (TOPAMAX) 50 mg tablet Take 1 tablet (50 mg total) by mouth 2 (two) times a day 180 tablet 3 04/11/20 24 Active buPROPion (WELLBUTRIN) 100 mg tablet Take 1 tablet (100 mg total) by mouth 2 (two) times a day 180 tablet 3 06/16/19 25 026 Active carbidopa-levod opa (SINEMET) 25-100 mg per tablet Take 1 tablet by mouth 3 (three) times a day 270 tablet 3 09/30/19 25 026 Active rasagiline (AZILECT) 1 mg tablet Take 1 tablet (1 mg total) by mouth every morning 90 tablet 3 12/16/19 25 026 Active venlafaxine 225 mg tablet extended release 24hr 24 hr tablet Take 1 tablet (225 mg total) by mouth daily 90 tablet 3 12/27/19 25 026 Active QUEtiapine (SEROquel) 25 mg tablet 2 tabs qhs 60 tablet 11 02/07/20 25 Active atogepant (Qulipta) 60 mg tablet TAKE 1 TABLET DAILY 90 tablet 1 02/11/20 25 Active amantadine (SYMMETREL) 100 mg capsule 1 cap qam x 1 week and then stop for hallucinations 01/22/20 25 025 Discontinu ed(Patient Reported) cephalexin (KEFLEX) 500 mg capsule Take 1 capsule (500 mg total) by mouth 4 (four) times a day for 10 days 40 capsule 02/27/20 25 025 ciprofloxacin (CIPRO) 500 mg tablet TAKE 1 TABLET BY MOUTH TWICE DAILY UNTIL ALL TAKEN 02/11/20 25 025 Discontinu ed(Patient Reported) Active Problems Problem Noted Date Diagnosed Date Generalized anxiety disorder 03/03/2025 Hyperlipidemia, unspecified 03/03/2025 Hypokalemia 01/28/2025 Moderate protein-calorie malnutrition 01/28/2025 Psychosis 01/27/2025 Cognitive changes 01/27/2025 Abnormal uterine bleeding 01/06/2025 Slow transit constipation 09/04/2024 RBD (REM behavioral disorder) 09/04/2024 New daily persistent headache 12/28/2023 Migraine with aura and with status migrainosus, not intractable 09/25/2023 Insomnia due to medical condition 07/11/2022 Anxiety 01/28/2021 Assessment & Plan (01/28/2021 6:38 PM CDT): Venlafaxine XR 75 mg daily Imbalance 09/09/2020 Assessment & Plan (10/29/2024 1:08 PM CDT): She has subjective imbalance that is related to head position change. Some of her gait instability is probably related to underlying parkinsonism, but it may be worth pursuing formal evaluation of vestibular function to query a separate process. This may help guide medication adjustment and therapy modalities for balance and gait training. Parkinsonism 09/09/2020 Assessment & Plan (03/10/2025 2:06 PM CDT): She has parkinsonism stage 2.5 characterized by right sided tremor, bilateral rigidity and right greater than left bradykinesia, with reduced right armswing, some right foot dystonia; and previous subjective benefit from ropinirole XL and now some improvement with rasagiline/amantadine/carbi-levo with reduction of tremor, stiffness and even improved cognition initially. Based on the pattern and progression of symptoms so far, the most likely etiology remains idiopathic Parkinson disease. Genetic testing did not reveal any pathogenic variants. Ceruloplasmin was previously checked and was normal at 36; she believes she had slit lamp exam to query Danelle Kerry rings with her ophthalm for Emmanuel's Disease. She had good benefit from Requip (ropinirole) XL however, she developed some impulsivity around spending and previously had some impulsivity around sex as well as bothersome swelling in one ankle and sleep attacks. All of these resolved when she stopped ropinirole. She tried carbi/levo and got up to taking fair doses (up to 3 tabs qid) but she noted bothersome peak dose dystonia (painful cramping of the right foot, some worsened dexterity that may have been dystonia in the right hand), possible peak dose dyskinesia in the toes and worsening of her migraine headaches). The dystonia at least partially resolved after stopping carbi/levo though even when she was off of it, she did have some inversion of the right foot when walking. Rasagiline plus amantadine provided some benefit (less than ropinirole or levodopa) however, she is still bothered by her symptoms. She is now on very low dose carbi/levo at 1.5 tabs tid and does note dystonia, dyskinesia and now has developed hallucinations and some suspicious thinking. The other issue is that she is not sleeping well. Today, we will initiate quetiapine for sleep and psychosis. There may be a synergistic effect on her mood/anxiety as well. If needed, we will taper and stop amantadine though she is not likely to tolerate her current dose of carbi/levo without it. Since she really cannot tolerate enough carbi/levo due to drug induced dystonia and dyskinesia and now psychosis, we will refer her for DBS and send new patient packet. She does have occasional lightheadedness as well. I informed of [employer] channel exercises and PD [employer]. I will order PT today. Constipation is generally controlled with daily Dulcolax and Miralax. She has noted some brain zaps at times. She also has some cognitive fog. Previous labs were unrevealing. Her mood and anxiety are only so-so on bupropion and venlafaxine XR. She may have some social anxiety and perhaps we could consider buspirone or propranolol in the future but with the lightheadedness and other meds changes, we will hold off on that for now. Plus, the addition of quetiapine may be helpful for these issues. Her sleep is mildly interrupted and she does have nightmares, kicking, thrashing, screaming RBD. While I would not expect quetiapine to help RBD, it may help her overall insomnia. She is still very bothered by her migraines and now sees our headache specialists. She has lost a lot of weight and part of this is likely the topirimate but it does help with her headaches, she is also on qulipta. Recs: 1. Same rasagiline, same carbi/levo. 2. Same bupropion, same venlafaxine ER. 3. Gave info on PD [employer] and [employer] exercises. 4. Continue to f/u with [facility] specialists. 5. Continue Ex-Lax. 6. Same quetiapine for hallucinations/delusions, mood and sleep. 7. Will send order to PT. 8. Change Zyrtec to bedtime dosing. 9. She will let us know when interested in pursuing DBS but she is doing very well right now. Assessment & Plan (02/06/2025 2:37 PM CDT): Ms. Angeli Perez is a 49 y.o. female, who presents for evaluation of DBS candidacy as a treatment option for Parkinson's disease. She developed gait changes in 2019, followed by loss of hand dexterity, stiffness and pain. She later developed dysphagia. More recently, she had problematic dyskinesias, affecting mostly the lower extremity as a form of dystonia. Due to her symptoms, she has stopped working and needs assistance on some ADLs. As far as non-motor symptoms, she has hyposmia, cognitive decline, anxiety, RBD symptoms, constipation. Now, she has psychosis with delusions, along with visual and auditory hallucinations in the past month. She just stopped taking amantadine and started quetiapine. On examination, there is moderate to severe parkinsonism, more evident in the right side. She also has orthostasis and dyskinesias on the exam. History and examination are compatible with most likely PD. We had an extensive discussion about potential DBS candidacy. If she did not have the current psychiatric symptoms, she would likely be a good candidate for [facility]-DBS, given the bothersome dyskinesias and presence of dystonia. However, with those symptoms still active, the option is not applicable to her now. We will do a blood work and urine testing in the clinic to assess for potential secondary causes of the decline in the mental health and cognition. Her DBS candidacy should be reviewed once she returns to her baseline. Finally, she would highly benefit from a wheelchair due to significant gait changes. Plan: Blood work and urine test. Treatment per Dr. Brennan and Betzy Cline. Wheelchair. Potential medication side effects were discussed during the encounter. Assessment & Plan (01/13/2025 5:21 PM CDT): She has parkinsonism stage 2.5 characterized by right sided tremor, bilateral rigidity and right greater than left bradykinesia, with reduced right armswing, some right foot dystonia; and previous subjective benefit from ropinirole XL and now some improvement with rasagiline/amantadine/carbi-levo with reduction of tremor, stiffness and even improved cognition initially. Based on the pattern and progression of symptoms so far, the most likely etiology remains idiopathic Parkinson disease. Genetic testing did not reveal any pathogenic variants. Ceruloplasmin was previously checked and was normal at 36; she believes she had slit lamp exam to query Danelle Kerry rings with her ophthalm for Emmanuel's Disease. She had good benefit from Requip (ropinirole) XL however, she developed some impulsivity around spending and previously had some impulsivity around sex as well as bothersome swelling in one ankle and sleep attacks. All of these resolved when she stopped ropinirole. She tried carbi/levo and got up to taking fair doses (up to 3 tabs qid) but she noted bothersome peak dose dystonia (painful cramping of the right foot, some worsened dexterity that may have been dystonia in the right hand), possible peak dose dyskinesia in the toes and worsening of her migraine headaches). The dystonia at least partially resolved after stopping carbi/levo though even when she was off of it, she did have some inversion of the right foot when walking. Rasagiline plus amantadine provided some benefit (less than ropinirole or levodopa) however, she is still bothered by her symptoms. She is now on very low dose carbi/levo at 1.5 tabs tid and does note dystonia, dyskinesia and now has developed hallucinations and some suspicious thinking. The other issue is that she is not sleeping well. Today, we will initiate quetiapine for sleep and psychosis. There may be a synergistic effect on her mood/anxiety as well. If needed, we will taper and stop amantadine though she is not likely to tolerate her current dose of carbi/levo without it. Since she really cannot tolerate enough carbi/levo due to drug induced dystonia and dyskinesia and now psychosis, we will refer her for DBS and send new patient packet. She does have occasional lightheadedness as well. I informed of [employer] channel exercises and PD [employer]. I will order PT today. Constipation is generally controlled with daily Dulcolax and Miralax. She has noted some brain zaps at times. She also has some cognitive fog. Previous labs were unrevealing. Her mood and anxiety are only so-so on bupropion and venlafaxine XR. She may have some social anxiety and perhaps we could consider buspirone or propranolol in the future but with the lightheadedness and other meds changes, we will hold off on that for now. Plus, the addition of quetiapine may be helpful for these issues. Her sleep is mildly interrupted and she does have nightmares, kicking, thrashing, screaming RBD. While I would not expect quetiapine to help RBD, it may help her overall insomnia. She is still very bothered by her migraines and now sees our headache specialists. She has lost a lot of weight and part of this is likely the topirimate but it does help with her headaches, she is also on qulipta. Recs: 1. Same rasagiline, same amantadine (consider stopping if hallucinations/delusions don't improve with quetiapine). 2. Same carbi/levo for now. 3. Same bupropion, same venlafaxine ER. 3. Consider adding buspirone or propranolol for anxiety in the future. 3. Gave info on PD [employer] and [employer] channel exercises. 4. Continue to f/u with [facility] specialists. 5. Continue Miralax,Dulcolax. 6. Start quetiapine for hallucinations/delusions, mood and sleep. 7. I will refer for DBS today and we will send new patient packet. My total encounter time was 48 minutes which was spent in the activities documented in the note including interview, assessment, education, and support. This includes time spent prior to the visit with 24 hours of the visit and after the visit in direct care of the patient. This time does not include time spent in any separately reportable services. I am seeing this patient for a chronic condition and will have continued care with this patient. Assessment & Plan (10/29/2024 1:06 PM CDT): She has parkinsonism stage 2.5 today characterized by left sided tremor, left greater than right rigidity and bradykinesia with decrement, and postural instability with recovery on pull test. She has historical subjective benefit from ropinirole and levodopa with reduction of tremor, slowness, and stiffness, but dose-limiting side effects including dyskinesia, dystonia, ICD. Based on the pattern and progression of symptoms so far, the most likely etiology remains idiopathic Parkinson disease. Genetic testing did not reveal any pathogenic variants. Ceruloplasmin was normal at 37, 24hr urine copper was normal at 14, and slit lamp exam showed no Danelle Kerry rings, excluding Emmanuel disease. She is having unclear benefit from the low dose of levodopa she started recently and seems to be tolerating it so far. We may be able to adjust the dosage or formulation to try to increase quality and consistency of benefit including dexterity and tremor, or even clarity of speed of thoughts, and minimize side effects including dyskinesia. If needed, we can consider advanced therapies including deep brain stimulation. Plan as phrased to the patient and her : Increase carbidopa-levodopa 25-100mg from 1 tab to 1.5 tabs, keep schedule the same for now, and send update in 2 weeks. Check melatonin dose and let us know what you taking. I will send referral to ENT ([facility]) clinic and they will call you to schedule. Assessment & Plan (09/04/2024 5:30 PM CDT): She has parkinsonism stage 2 characterized by right sided tremor, bilateral rigidity and right greater than left bradykinesia, with reduced right armswing, some right foot dystonia; and previous subjective benefit from ropinirole XL and now some improvement with rasagiline/amantadine with reduction of tremor, stiffness and even improved cognition initially. Based on the pattern and progression of symptoms so far, the most likely etiology remains idiopathic Parkinson disease. Genetic testing did not reveal any pathogenic variants. Ceruloplasmin was previously checked and was normal at 36; she believes she had slit lamp exam to query Danelle Kerry rings with her ophthalm for Emmanuel's Disease. She had good benefit from Requip (ropinirole) XL however, she developed some impulsivity around spending and previously had some impulsivity around sex as well as bothersome swelling in one ankle and sleep attacks. All of these resolved when she stopped ropinirole. She tried carbi/levo and got up to taking fair doses (up to 3 tabs qid) but she noted bothersome peak dose dystonia (painful cramping of the right foot, some worsened dexterity that may have been dystonia in the right hand), possible peak dose dyskinesia in the toes and worsening of her migraine headaches). The dystonia at least partially resolved after stopping carbi/levo though she does have some inversion of the right foot when walking. Rasagiline plus amantadine have provided some benefit (less than ropinirole or levodopa) however, she is still somewhat bothered by her symptoms. At this point, we will retry carbi/levo at very low doses to see if we can get her benefit without side effects. The dyskinesia should at least be blunted by the amantadine. If she really cannot tolerate any carbi/levo due to drug induced dystonia and dyskinesia, then she will be a good candidate for DBS and we briefly discussed that today. She does have occasional lightheadedness and one instance of a possible hallucination and will need to monitor this as we try carbi/levo. I informed of [employer] channel exercises and [employer]. I will order PT today. She has constipation with daily Dulcolax and should start Miralax. She has noted some brain zaps at times. She also has some cognitive fog. I will check some labs today to be sure these are normal. Her mood and anxiety are largely controlled on bupropion and venlafaxine XR. She may have some social anxiety and perhaps we could consider buspirone or propranolol in the future but with the lightheadedness and other meds changes, we will hold off on that for now. Her sleep is mildly interrupted and she does have nightmares, kicking, thrashing, screaming RBD. She should start 10 to 20 mg of melatonin as a first step. Her anxiety is mildly is okay on [...] low dose topirimate. Recs: 1. Same rasagiline, same amantadine. 2. Start carbi/levo with very slow titration, report in one month 3. Same bupropion, same venlafaxine ER. 3. Consider adding buspirone or propranolol for anxiety in the future. 3. Gave info on [employer] and [employer] channel exercises. 4. Continue to f/u with [facility] specialists. 5. Try Miralax, okay to continue Dulcolax. 6. Try melatonin for RBD and vivid dreams. 7. She is interested in all PD research. My total encounter time was 48 minutes which was spent in the activities documented in the note including interview, assessment, education, and support. This includes time spent prior to the visit with 24 hours of the visit and after the visit in direct care of the patient. This time does not include time spent in any separately reportable services. I am seeing this patient for a chronic condition and will have continued care with this patient. Assessment & Plan (02/07/2024 12:41 PM CDT): [...] bothersome swelling in one ankle and sleep attacks. All of these resolved when she stopped [...] change. 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 All of these resolved when she stopped [...] order for 24 hour urine copper to [facility] in [place], [place]. 5. Will refer to our [facility] [...] at last visit, we sent this to [facility] in [place], [place] but she still has not done it; and she believes she had slit lamp exam to query Adnelle Kerry rings with her ophthalm but she [...] order for 24 hour urine copper to [facility] in [place], [place]. 6. She is interested in all PD research. 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 6. She is interested in all [...] age at onset, although this may not traveler changer for her symptoms. Given her age it is reasonable to exclude other etiologies including Emmanuel disease. Her ceruloplasmin was previously checked and was normal at 36. It is reasonable to obtain 24 hour urine copper and slit lamp exam to query Daenlle Kerry rings to complete this evaluation, which [...] daily. 3. I will send referral to [facility] physical therapy. 4. I will [...] as excessive gambling or shopping. Referral to [facility] Disorders [facility]; appointment with Dr. Ritesh Brennan scheduled on February 02, 2021. Will defer to Dr. Brennan for genetic screening, but no family history of Parkinson's disease. Breast mass 07/12/2020 Encounters Date Type Department Care Team Description 03/10/2025 1:30 PM CDT Telemedicine [facility] Movement Disorders [address] [place] [address] Betzy Cline NP Parkinsonism, unspecified Parkinsonism type (HCC) (Primary Dx); Anxiety; Cognitive changes; Insomnia due to medical condition; Moderate protein-calorie malnutrition; RBD (REM behavioral disorder); Psychosis, unspecified psychosis type (HCC); Slow transit constipation 03/10/2025 Orders Only [facility] Movement Disorders [address] [place] [address] [place] [address] Betzy Cline NP Parkinsonism, unspecified Parkinsonism type (HCC) (Primary Dx) 03/05/2025 Documentation [facility] Movement Disorders [address] [place] [address] Zoe Lovett CMA 03/03/2025 1:00 PM CDT Office Visit [facility] Obstetrical Gynecology [address] [place] [address] Chetna Roblero MD Family history of colon cancer in father (Primary Dx); Status post hysteroscopy 02/26/2025 9:20 PM CDT - 02/26/2025 9:55 PM CDT Emergency [facility] Emergency Department [address] [place] [address] Cellulitis of right lower extremity (Primary Dx) Discharge Disposition: Discharge to home or self care 02/16/2025 Results Follow-Up [facility] Obstetrical Gynecology [address] [place] [phone] Chetna Roblero MD Surgical pathology 02/12/2025 8:40 AM CDT - 02/12/2025 9:50 AM CDT Surgery [facility] OR [address] [place] [id number] Chetna Roblero MD DILATION AND CURETTAGE, HYSTEROSCOPY, POLYPECTOMY WITH MYOSURE 02/12/2025 8:36 AM CDT Anesthesia Event [facility] OR [address] [place] [address] Miguel Varghese MD 02/12/2025 6:33 AM CDT - 02/12/2025 10:46 AM CDT Hospital Encounter [facility] OR [address] [place] [id number] Chetna Roblero MD Abnormal uterine bleeding (Primary Dx) Discharge Disposition: Discharge to home or self care 02/10/2025 Telephone [facility] General Neurology [address] [place] [phone] Kailey Roa PA Qulipta PA 02/06/2025 Telephone [facility] Movement Disorders [address] [place] [address] Lucrecia Durán RN 02/04/2025 11:20 AM CDT Pre-Admission Testing [facility] Pre Admit Testing [address] [place] [phone] Abnormal uterine bleeding; Pre-op testing 02/04/2025 8:00 AM CDT Procedure visit [facility] Otolaryngology [address] [place] [address] [place] [address] Sully Caba Au.D. Imbalance (Primary Dx) 02/04/2025 Orders Only [facility] Pre Admit Testing [address] [place] [id number] Lela Tucker RN Abnormal uterine bleeding 02/03/2025 Orders Only [facility] Pre Admit Testing [address] [place] [address] Miguel Vraghese MD Pre-op testing (Primary Dx) 01/27/2025 11:37 PM CDT - 01/29/2025 4:10 PM CDT Hospital Encounter [facility] 4 Med Surg [address] [place] [address] Avila Perez DO [place], MD Bailey Castillo Omar Ali Mohammed, MD Hypokalemia (Primary Dx); Hypercalcemia; Parkinson's disease, unspecified whether dyskinesia present, unspecified whether manifestations fluctuate (HCC) Discharge Disposition: Discharge to home or self care 01/27/2025 2:15 PM CDT Lab [facility] for [facility] [address] [place] [phone] Cognitive changes 01/27/2025 10:30 AM CDT Office Visit [facility] Movement Disorders [address] [place] [phone] Karen Lindsey am, MD Parkinsonism, unspecified Parkinsonism type (HCC) (Primary Dx); Cognitive changes; Psychosis, unspecified psychosis type (HCC) 01/27/2025 Results Follow-Up [facility] Movement Disorders [address] [place] [phone] Karen Lindsey am, MD Urinalysis reflex to microscopic and culture Urine, CBC with auto differential, Urinalysis, microscopic only, Additional followed-up results: 7 01/12/2025 Telephone [facility] Movement Disorders [address] [place] [phone] Kristine Gambino RN 01/05/2025 Results Follow-Up [facility] Obstetrical Gynecology [address] [place] [phone] Chetna Roblero MD US Pelvis W Endovaginal 12/30/2024 Telephone [facility] Scheduling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 Comment:Testing performed by : [address], [address] NRBC abs 0.00 0.00 - 0.01 K/cumm [facility] Comment:Testing performed by : [address], [address] Blood 01/29/2025 3:09 AM CDT 01/29/2025 4:39 AM CDT Amandeep Avalos MD LAB BLOOD ORDERABL ES Final Result [place] [address] [address] * Phosphorus (01/29/2025 3:09 AM CDT) [facility] Phosphorus, pl 2.8 2.3 - 4.5 mg/dL Comment:Testing performed by : [address] [address] Blood 01/29/2025 3:09 AM CDT 01/29/2025 4:36 AM CDT Amandeep Avalos MD LAB BLOOD ORDERABL ES Final Result Performing Organization Address [facility] Co de Phone Number JA[address] [employer] [place] [address] * Magnesium (01/29/2025 3:09 AM CDT) [facility] Magnesium 1.7 1.4 - 2.5 mg/dL Comment:Testing performed by : [address] [address] Blood 01/29/2025 3:09 AM CDT 01/29/2025 4:36 AM CDT Amandeep Avalos MD LAB BLOOD ORDERABL ES Final Result Performing Organization Address City/[facility] Co de Phone Number [address] [place] [address] * (ABNORMAL) Comprehensive metabolic panel (01/29/2025 3:09 AM CDT) [facility] Sodium 140 135 - 145 mmol/L Comment:Testing performed by : [address] [address] Potassium, pl 4.4 3.3 - 4.9 mmol/L [facility] PAPPAS Comment:Testing performed by : [address] [address] Chloride 109 97 - 110 mmol/L [facility] PAPPAS Comment:Testing performed by : [address] [address] CO2 19(L) 22 - 32 mmol/L [facility] Comment:Testing performed by : [address] [address] Anion gap 12 2 - 15 mmol/L [facility] Comment:Testing performed by : [address], [place]., [address] BUN 10 6 - 25 mg/dL [facility] Comment:Testing performed by : [address], [place]., [address] Creatinine 0.71 0.60 - 1.10 mg/dL [facility] Comment:Testing performed by : [address] [address] Glucose 85 70 - 199 mg/dL [facility] Comment: Interpretive Data Fasting glucose >/= 126 mg/dl is diagnostic for diabetes. Fasting is defined as no caloric intake for at least 8 hours. Fasting glucose between 100 mg/dl to 125 mg/dl is diagnostic of prediabetes. In a patient with classic symptoms of hyperglycemia or hyperglycemic crisis, a random glucose >/= 200 mg/dl is diagnostic for diabetes. In the absence of unequivocal hyperglycemia, results should be confirmed by repeat testing. The classification and Diagnosis of Diabetes Diabetes Care 2021; 46: S19-S40. Current interpretive data was last revised 2022. Testing performed by: [address] [address] Calcium 9.7 8.5 - 10.3 mg/dL [facility] Comment:Testing performed by : [address] [address] Bilirubin, total 0.4 0.1 - 1.2 mg/dL [facility] Comment:Testing performed by : [address] [address] Protein, pl 6.3(L) 6.5 - 8.5 g/dL [facility] Comment:Testing performed by : [address] [address] Albumin 4.0 3.5 - 5.0 g/dL [facility] Comment:Testing performed by : [address] [place] [address] Alk phos 28(L) 40 - 130 Units/L [facility] Comment:Testing performed by : [address] [address] ALT 7 7 - 45 Units/L [facility] Comment:Testing performed by : [address] [address] AST 39 10 - 45 Units/L [facility] Comment:Testing performed by : [address] [address] Blood 01/29/2025 3:09 AM CDT 01/29/2025 4:36 AM CDT Amandeep Avalos MD LAB BLOOD ORDERABL ES Final Result [facility] [address] [facility] [place] [address] * (ABNORMAL) Urinalysis reflex to microscopic and culture Urine (01/29/2025 2:20 AM CDT) Color, ur Straw Yellow Comment:Testing performed by : [address] [address] Clarity, ur Cloudy(A) Clear [facility] Comment:Testing performed by : [address] [address] Specific gravity, ur 1.011 1.003 - 1.030 [facility] Comment:Testing performed by : [address] [address] pH, urine 7.5 [facility] Comment: Interpretive Data U rine pH is affected by diet, medications, systemic acid-base disturbances, and renal tubular function. pH may affect urinary stone formation. For example, urine pH below 6.0 may help reduce the tendency for calcium phosphate stones and pH greater than 6.0 may reduce the tendency for uric acid stone formation. Source: [facility] [employer] Current Interpretive Data was last revised on 2017 Testing performed by: [address] [address] Protein, ur ql Negative Negative [place] PAPPAS Comment:Testing performed by : [facility], [address] [place] [address], [place]., [address] Glucose, ur ql Negative Negative [place] Comment:Testing performed by : [address], [place]., [address] Ketones, ur Negative Negative [facility] Comment:Testing performed by : [address], [place]., [address] Bilirubin, ur Negative Negative [facility] Comment:Testing performed by : [facility], [address] [place] [address], [place]., [address] Blood, ur 1+(A) Negative [facility] Comment:Testing performed by : [address], [place]., [address] Urobilinogen, ur <2.0 <2.0 mg/dL [facility] Comment:Testing performed by : [address], [place]., [address] Nitrite, ur Negative Negative [facility] Comment:Testing performed by : [address], [place]., [address] Leukocyte esterase, ur 3+(A) Negative [facility] Comment:Testing performed by : [address], [place]., [address] UA reflex comment Reflex to microscopic UA will be performed. [facility] Comment:Testing performed by : [address], [place]., [address] Urine 01/29/2025 2:20 AM CDT 01/29/2025 2:31 AM CDT Crispin Lee MD LAB MICROBIOLOGY - G ENERAL ORDERABLES Final Result [facility] [address] [facility] [place] [address] * Sodium, urine, random (01/29/2025 2:20 AM CDT) Sodium, ur 163 mmol/L Comment: Interpretive Data No reference range established. Current interpretive data was last revised 2018. Urine 01/29/2025 2:20 AM CDT 01/29/2025 4:22 AM CDT Amandeep Avalos MD LAB URINE ORDERABL ES Final Result Performing Organization Address [facility] Co de Phone Number JA[address] [address] * Potassium, urine, random (01/29/2025 2:20 AM CDT) Potassium conc, ur 38.0 mmol/L Comment: Interpretive Data No reference range established. Current interpretive data was last revised 2018. Urine 01/29/2025 2:20 AM CDT 01/29/2025 4:22 AM CDT Amandeep Avalos MD LAB URINE ORDERABL ES Final Result Performing Organization Address [facility] Co de Phone Number [address] [employer] [place] [address] * Chloride, urine, random (01/29/2025 2:20 AM CDT) Chloride, ur 159 mmol/L Comment: Interpretive Data No reference range established. Current interpretive data was last revised 2018. Urine 01/29/2025 2:20 AM CDT 01/29/2025 4:22 AM CDT Amandeep Avalos MD LAB URINE ORDERABL ES Final Result Performing Organization Address [facility] Co de Phone Number [address] [address] * (ABNORMAL) Urinalysis, microscopic only (01/29/2025 2:20 AM CDT) WBC, ur 21-50(A) 0 - 5 /HPF Comment:Testing performed by : [facility], [address] [place] [address]., [address] RBC, ur 6-10(A) 0 - 2 /HPF [facility] Comment:Testing performed by : [facility], [address] [place] [address], [place]., [address] Epithelial cells, squamous, ur 11-20(A) 0 - 5 /HPF [facility] Comment:Testing performed by : [facility], [address] [place] [address], [place]., [address] Bacteria, ur Trace(A) [facility] Comment:Testing performed by : [address], [place]., [address] Mucous, ur Present(A) [facility] Comment:Testing performed by : [address], [place]., [address] Culture Reflex Comment Reflex to urine culture will be performed. [facility] Comment:Testing performed by : [address], [place]., [address] Urine 01/29/2025 2:20 AM CDT 01/29/2025 2:31 AM CDT Crispin Lee MD LAB URINE ORDERABLES Final Result [facility] [place] [address] * Urine culture Urine (01/29/2025 2:20 AM CDT) Report Final Report: Less than 100,000 colonies/mL (clinically insignificant growth based on current clinical standards) Comment:Testing performed by : [facility], [address] [facility] [place]., [address] Organism (CLINICALLY INSIGNIFICANT GROWTH [facility] Urine 01/29/2025 2:20 AM CDT 01/29/2025 5:24 AM CDT Narrative [facility] - 01/30/2025 7:42 AM CDT Urine culture reflexed based upon urinalysis results. Testing performed by [facility] Microbiology Laboratory ([phone]) Crispin Lee MD LAB MICROBIOLOGY - G [facility] ORDERABLES Final Result [facility] [address] [facility] [place] [address] * CT Renal Stone (01/28/2025 3:14 PM CDT) Anatomical Region Laterality Modality Abdomen N/A Computed Tomogra phy 01/28/2025 4:56 PM CDT Narrative 01/28/2025 5:01 PM CDT EXAM DESCRIPTION: CT RENAL STONE REASON FOR STUDY: Abdominal/flank pain, stone suspected Abdominal/flank pain, stone suspected TECHNIQUE: CT scan of the abdomen and pelvis performed without intravenous and without oral contrast using helical scanning technique. Reconstructed coronal and sagittal MPR images reviewed. All images stored on PACS. Automated exposure control was used as a dose optimization technique for this examination. COMPARISON: None FINDINGS: The sensitivity for detection of visceral lesions is diminished without the use of intravenous contrast. LOWER CHEST: No significant pulmonary abnormalities. No effusion. LIVER: Normal size. No identified cystic or solid masses. GALLBLADDER: No stones, wall thickening or pericholecystic fluid BILE DUCTS: No intrahepatic or extrahepatic ductal dilatation. SPLEEN: Normal size. No focal lesions. PANCREAS: No identified cystic or solid masses. No significant calcifications. No adjacent inflammation or peripancreatic fluid collections. Pancreatic duct not dilated. ADRENALS: Normal. KIDNEYS/URINARY TRACT: No identified significant cystic or solid masses. Multiple left renal calculi, largest measuring 1.1 cm in the lower pole and 0.9 cm in the midpole. No right renal calculus. No hydronephrosis or hydroureter. Urinary bladder is unremarkable. GI: No dilated bowel loops. No obvious wall thickening. No significant diverticular disease. PERITONEUM: No ascites or free air. RETROPERITONEUM: No mass or adenopathy. REPRODUCTIVE: No significant abnormality. VASCULATURE: No abdominal aortic aneurysm. MUSCULOSKELETAL: No significant abnormality. OTHER: No other abnormality. IMPRESSION: Multiple nonobstructing left renal calculi. No right renal calculus. THIS IS AN ELECTRONICALLY VERIFIED FINAL REPORT 01/28/2025 5:01 PM - Electronically signed by Jessy Felton M.D. FT: FT Report ID: [id number] Reading Location: [id number] Procedure Note Jessy Finch MD - 01/28/2025 EXAM DESCRIPTION: CT RENAL STONE REASON FOR STUDY: Abdominal/flank pain, stone suspected Abdominal/flank pain, stone suspected TECHNIQUE: CT scan of the abdomen and pelvis performed without intravenousand without oral contrast using helical scanning technique. Reconstructed coronal and sagittal MPR images reviewed. All images stored on PACS.Automated exposure control was used as a dose optimization technique for this examination. COMPARISON: None FINDINGS: The sensitivity for detection of visceral lesions is diminished without the use of intravenous contrast. LOWER CHEST: No significant pulmonary abnormalities. No effusion. LIVER: Normal size. No identified cystic or solid masses. GALLBLADDER: No stones, wall thickening or pericholecystic fluid BILE DUCTS: No intrahepatic or extrahepatic ductal dilatation. SPLEEN: Normal size. No focal lesions. PANCREAS: No identified cystic or solid masses. No significant calcifications. No adjacent inflammation or peripancreatic fluidcollections. Pancreatic duct not dilated. ADRENALS: Normal. KIDNEYS/URINARY TRACT: No identified significant cystic or solid masses. Multiple left renal calculi, largest measuring 1.1 cm in the lower poleand 0.9 cm in the midpole. No right renal calculus. No hydronephrosis or hydroureter. Urinary bladder is unremarkable. GI: No dilated bowel loops. No obvious wall thickening. No significant diverticular disease. PERITONEUM: No ascites or free air. RETROPERITONEUM: No mass or adenopathy. REPRODUCTIVE: No significant abnormality. VASCULATURE: No abdominal aortic aneurysm. MUSCULOSKELETAL: No significant abnormality. OTHER: No other abnormality. IMPRESSION: Multiple nonobstructing left renal calculi. No right renal calculus. THIS IS AN ELECTRONICALLY VERIFIED FINAL REPORT 01/28/2025 5:01 PM - Electronically signed by Jessy Felton M.D. FT: FT Report ID: [id number] Reading Location: [id number] Amandeep Avalos MD IMG CT PROCEDURES Final Result * eGFR (01/28/2025 12:00 PM CDT) eGFR 88 >=60 mL/min/1. 73 m2 Comment: Interpretive Data Reference Interval Normal >/= 90 mL/min/1.73m2 Mildly decreased* 60 - 89 mL/min/1.73m2 Mildly to moderately decreased 45 - 59 mL/min/1.73m2 Moderately to severely decreased 30 - 44 mL/min/1.73m2 Severely decreased 15 - 29 mL/min/1.73m2 Kidney Failure < 15 mL/min/1.73m2 *Relative to young adult level Estimated glomerular filtration rate is determined by the 2020 CKD-EPI equation recommended by the National Kidney Foundation (A Unifying Approach to GFR Estimation: Recommendations of the NKF-ASK Task Force on Reassessing the Inclusion of Race in Diagnosing Kidney Disease, JASN 2020). The CKD-EPI equation should not be used for patients with unstable renal function and has not been validated in children and those over 70. Current interpretive data was last reviewed 2021. Testing performed by: [address] [address] Blood 01/28/2025 12:0 0 PM CDT 01/28/2025 12:07 PM CDT Crispin Lee MD LAB BLOOD ORDERABLES Final Result [facility] [address] [facility] [place] [address] * Differential, auto (01/28/2025 12:00 PM CDT) Neutrophil abs 3.07 1.50 - 6.50 K/cumm Comment:Testing performed by : [address] [address] Imm gran abs 0.01 0.00 - 0.10 K/cumm [facility] PAPPAS Comment:Testing performed by : [address] [address] Lymphocyte abs 1.76 0.80 - 3.30 K/cumm [facility] Comment:Testing performed by : [address] [address] Monocyte abs 0.46 0.20 - 0.80 K/cumm [facility] Comment:Testing performed by : [address] [address] Eosinophil abs 0.10 0.00 - 0.50 K/cumm [facility] Comment:Testing performed by : [address], [place]., [address] Basophil abs 0.03 0.00 - 0.10 K/cumm [facility] Comment:Testing performed by : [address] [address] Neutrophil pct 56.5 % [facility] Comment: Interpretive Data Percent cell count reference ranges are not reported, since discordance with absolute values may lead to misinterpretation of CBC data. Current Interpretive Data was last revised on 2017. Testing performed by: [address] [address] Imm gran pct 0.2 % [facility] Comment: Interpretive Data Percent cell count reference ranges are not reported, since discordance with absolute values may lead to misinterpretation of CBC data. Current Interpretive Data was last revised on 2017. Testing performed by: [address] [address] Lymphocyte pct 32.4 % [facility] Comment: Interpretive Data Percent cell count reference ranges are not reported, since discordance with absolute values may lead to misinterpretation of CBC data. Current Interpretive Data was last revised on 2017. Testing performed by: [address] [address] Monocyte pct 8.5 % [facility] Comment: Interpretive Data Percent cell count reference ranges are not reported, since discordance with absolute values may lead to misinterpretation of CBC data. Current Interpretive Data was last revised on 2017. Testing performed by: [address] [address] Eosinophil pct 1.8 % [facility] Comment: Interpretive Data Percent cell count reference ranges are not reported, since discordance with absolute values may lead to misinterpretation of CBC data. Current Interpretive Data was last revised on 2017. Testing performed by: [address] [address] Basophil pct 0.6 % [facility] PAPPAS Comment: Interpretive Data Percent cell count reference ranges are not reported, since discordance with absolute values may lead to misinterpretation of CBC data. Current Interpretive Data was last revised on 2017. Testing performed by: [address] [address] Blood 01/28/2025 12:0 0 PM CDT 01/28/2025 12:08 PM CDT us Crispin Lee MD LAB BLOOD ORDERABLES Final Result [place] [facility] [place] [address] * (ABNORMAL) CBC with auto differential (01/28/2025 12:00 PM CDT) WBC 5.43 3.80 - 9.90 K/cumm Comment:Testing performed by : [address] [address] Hgb 9.0(L) 11.9 - 15.5 g/dL [place] PAPPAS Comment:Testing performed by : [address] [address] Hct 26.9(L) 35.6 - 45.5 % [facility] PAPPAS Comment:Testing performed by : [address] [address] Plt 284 150 - 400 K/cumm [facility] PAPPAS Comment:Testing performed by : [address] [address] MPV 9.8 9.1 - 12.3 fL [place] PAPPAS Comment:Testing performed by : [address] [address] RBC 3.07(L) 3.90 - 5.20 M/cumm [facility] PAPPAS Comment:Testing performed by : [address] [address] MCV 87.6 81.3 - 96.4 fL [place] PAPPAS Comment:Testing performed by : [address] [address] MCH 29.3 27.1 - 33.3 pg [place] PAPPAS Comment:Testing performed by : [address] [address] MCHC 33.5 32.3 - 35.7 g/dL [facility] PAPPAS Comment:Testing performed by : [address] [address] RDW CV 14.2 11.1 - 14.9 % [facility] PAPPAS Comment:Testing performed by : [address] [address] RDW SD 45.2 35.7 - 48.1 fL [place] PAPPAS Comment:Testing performed by : [address] [address] NRBC abs 0.00 0.00 - 0.01 K/cumm [facility] PAPPAS Comment:Testing performed by : [address] [address] Blood 01/28/2025 12:0 0 PM CDT 01/28/2025 12:08 PM CDT Crispin Lee MD LAB BLOOD ORDERABLES Final Result [facility] [address] [facility] of Laboratories [place], [place] [id number] * (ABNORMAL) Comprehensive metabolic panel (01/28/2025 12:00 PM CDT) Sodium 142 135 - 145 mmol/L Comment:Testing performed by : [address] [address] Potassium, pl 4.0 3.3 - 4.9 mmol/L [facility] PAPPAS Comment: Delta - Results Reviewed Testing performed by: [address] [address] Chloride 110 97 - 110 mmol/L [place] PAPPAS Comment:Testing performed by : [address] [address] CO2 22 22 - 32 mmol/L [place] Comment:Testing performed by : [address] [address] Anion gap 10 2 - 15 mmol/L [place] Comment:Testing performed by : [address] [address] BUN 10 6 - 25 mg/dL [facility] Comment:Testing performed by : [address], [place]., [address] Creatinine 0.81 0.60 - 1.10 mg/dL [facility] Comment:Testing performed by : [address] [address] Glucose 98 70 - 199 mg/dL [facility] Comment: Interpretive Data Fasting glucose >/= 126 mg/dl is diagnostic for diabetes. Fasting is defined as no caloric intake for at least 8 hours. Fasting glucose between 100 mg/dl to 125 mg/dl is diagnostic of prediabetes. In a patient with classic symptoms of hyperglycemia or hyperglycemic crisis, a random glucose >/= 200 mg/dl is diagnostic for diabetes. In the absence of unequivocal hyperglycemia, results should be confirmed by repeat testing. The classification and Diagnosis of Diabetes Diabetes Care 2021; 46: S19-S40. Current interpretive data was last revised 2022. Testing performed by: [address] [address] Calcium 9.8 8.5 - 10.3 mg/dL [facility] Comment:Testing performed by : [address] [address] Bilirubin, total 0.4 0.1 - 1.2 mg/dL [facility] Comment:Testing performed by : [address] [address] Protein, pl 6.0(L) 6.5 - 8.5 g/dL [place] Comment:Testing performed by : [address] [address] Albumin 3.9 3.5 - 5.0 g/dL [place] Comment:Testing performed by : [address] [address] Alk phos 27(L) 40 - 130 Units/L [place] PAPPAS Comment:Testing performed by : [address] [address] ALT 19 7 - 45 Units/L [place] Comment:Testing performed by : [address] [address] AST 37 10 - 45 Units/L [place] PAPPAS Comment:Testing performed by : [address] [address] Blood 01/28/2025 12:0 0 PM CDT 01/28/2025 12:07 PM CDT Crispin Lee MD LAB BLOOD ORDERABLES Final Result Performing Organization Address City/[facility]/ZIP Co de Phone Number [address] [place] [address] * (ABNORMAL) PTH (01/28/2025 12:50 AM CDT) Pathologist [facility] PTH 14(L) 15 - 65 pg/mL Comment:Testing performed by : [address] [address] Blood 01/28/2025 12:5 0 AM CDT 01/28/2025 12:53 AM CDT us Avila Perez DO LAB BLOOD ORDERABLES Final Res ult Performing Organization Address City/[facility]/ZIP Co de Phone Number [address] [place] [address] * eGFR (01/28/2025 12:39 AM CDT) eGFR 88 >=60 mL/min/1. 73 m2 Comment: Interpretive Data Reference Interval Normal >/= 90 mL/min/1.73m2 Mildly decreased* 60 - 89 mL/min/1.73m2 Mildly to moderately decreased 45 - 59 mL/min/1.73m2 Moderately to severely decreased 30 - 44 mL/min/1.73m2 Severely decreased 15 - 29 mL/min/1.73m2 Kidney Failure < 15 mL/min/1.73m2 *Relative to young adult level Estimated glomerular filtration rate is determined by the 2020 CKD-EPI equation recommended by the National Kidney Foundation (A Unifying Approach to GFR Estimation: Recommendations of the NKF-ASK Task Force on Reassessing the Inclusion of Race in Diagnosing Kidney Disease, JASN 2020). The CKD-EPI equation should not be used for patients with unstable renal function and has not been validated in children and those over 70. Current interpretive data was last reviewed 2021. Testing performed by: [address] [address] Blood 01/28/2025 12:3 9 AM CDT 01/28/2025 12:43 AM CDT Avila Perez DO LAB BLOOD ORDERABLES Final Res ult Performing Organization Address [facility] de Phone Number [facility] [address] [facility] [employer] [place], [place] [id number] * Thyroid Function Julian (01/28/2025 12:39 AM CDT) TSH 3.23 0.30 - 4.20 mcIUnit/mL Comment:Testing performed by : [address] [address] Blood 01/28/2025 12:3 9 AM CDT 01/28/2025 12:43 AM CDT Avila Perez DO LAB BLOOD ORDERABLES Final Res ult Performing Organization Address [facility] Co de Phone Number [facility] [address] [facility] [place] [address] * (ABNORMAL) Basic metabolic panel (01/28/2025 12:39 AM CDT) Sodium 140 135 - 145 mmol/L Comment:Testing performed by : [address] [address] Potassium, pl 2.5(C) 3.3 - 4.9 mmol/L [facility] Comment: Critical Result called to and read back by [id number], DATE: 2025-01-28 01:15:20 BY: [id number] Testing performed by: [address] [address] Chloride 103 97 - 110 mmol/L [facility] Comment:Testing performed by : [address] [address] CO2 24 22 - 32 mmol/L [facility] Comment:Testing performed by : [address] [address] Anion gap 13 2 - 15 mmol/L [facility] Comment:Testing performed by : [address] [address] BUN 15 6 - 25 mg/dL [facility] Comment:Testing performed by : [address] [address] Creatinine 0.81 0.60 - 1.10 mg/dL [facility] Comment:Testing performed by : [address] [address] Glucose 99 70 - 199 mg/dL [facility] Comment: Interpretive Data Fasting glucose >/= 126 mg/dl is diagnostic for diabetes. Fasting is defined as no caloric intake for at least 8 hours. Fasting glucose between 100 mg/dl to 125 mg/dl is diagnostic of prediabetes. In a patient with classic symptoms of hyperglycemia or hyperglycemic crisis, a random glucose >/= 200 mg/dl is diagnostic for diabetes. In the absence of unequivocal hyperglycemia, results should be confirmed by repeat testing. The classification and Diagnosis of Diabetes Diabetes Care 2021; 46: S19-S40. Current interpretive data was last revised 2022. Testing performed by: [address] [address] Calcium 10.2 8.5 - 10.3 mg/dL [facility] Comment:Testing performed by : [address] [address] Blood 01/28/2025 12:3 9 AM CDT 01/28/2025 12:43 AM CDT Avila Perez DO LAB BLOOD ORDERABLES Final Res ult Performing Organization Address [facility] de Phone Number [place] [id number] [facility] [place] [address] * eGFR (01/27/2025 7:49 PM CDT) eGFR 85 >=60 mL/min/1. 73 m2 Comment: Interpretive Data Reference Interval Normal >/= 90 mL/min/1.73m2 Mildly decreased* 60 - 89 mL/min/1.73m2 Mildly to moderately decreased 45 - 59 mL/min/1.73m2 Moderately to severely decreased 30 - 44 mL/min/1.73m2 Severely decreased 15 - 29 mL/min/1.73m2 Kidney Failure < 15 mL/min/1.73m2 *Relative to young adult level Estimated glomerular filtration rate is determined by the 2020 CKD-EPI equation recommended by the National Kidney Foundation (A Unifying Approach to GFR Estimation: Recommendations of the NKF-ASK Task Force on Reassessing the Inclusion of Race in Diagnosing Kidney Disease, JASN 2020). The CKD-EPI equation should not be used for patients with unstable renal function and has not been validated in children and those over 70. Current interpretive data was last reviewed 2021. Testing performed by: [address] [address] Blood 01/27/2025 7:49 PM CDT 01/27/2025 7:55 PM CDT Avila Perez DO LAB BLOOD ORDERABLES Final Res ult Performing Organization Address [facility] de Phone Number [place] [phone] [facility] Department [place] [employer] [place] [address] * Differential, auto (01/27/2025 7:49 PM CDT) Pathologist [facility] Neutrophil abs 4.41 1.50 - 6.50 K/cumm Comment:Testing performed by : [address] [address] Imm gran abs 0.02 0.00 - 0.10 K/cumm [facility] Comment:Testing performed by : [address] [address] Lymphocyte abs 3.26 0.80 - 3.30 K/cumm [facility] Comment:Testing performed by : [address] [address] Monocyte abs 0.79 0.20 - 0.80 K/cumm [facility] Comment:Testing performed by : [address], [place]., [address] Eosinophil abs 0.18 0.00 - 0.50 K/cumm [facility] Comment:Testing performed by : [address], [place]., [address] Basophil abs 0.05 0.00 - 0.10 K/cumm [facility] Comment:Testing performed by : [address] [address] Neutrophil pct 50.6 % [facility] Comment: Interpretive Data Percent cell count reference ranges are not reported, since discordance with absolute values may lead to misinterpretation of CBC data. Current Interpretive Data was last revised on 2017. Testing performed by: [address] [address] Imm gran pct 0.2 % [facility] Comment: Interpretive Data Percent cell count reference ranges are not reported, since discordance with absolute values may lead to misinterpretation of CBC data. Current Interpretive Data was last revised on 2017. Testing performed by: [address] [address] Lymphocyte pct 37.4 % [facility] Comment: Interpretive Data Percent cell count reference ranges are not reported, since discordance with absolute values may lead to misinterpretation of CBC data. Current Interpretive Data was last revised on 2017. Testing performed by: [address] [address] Monocyte pct 9.1 % [facility] Comment: Interpretive Data Percent cell count reference ranges are not reported, since discordance with absolute values may lead to misinterpretation of CBC data. Current Interpretive Data was last revised on 2017. Testing performed by: [address] [address] Eosinophil pct 2.1 % [facility] Comment: Interpretive Data Percent cell count reference ranges are not reported, since discordance with absolute values may lead to misinterpretation of CBC data. Current Interpretive Data was last revised on 2017. Testing performed by: [address] [address] Basophil pct 0.6 % [facility] Comment: Interpretive Data Percent cell count reference ranges are not reported, since discordance with absolute values may lead to misinterpretation of CBC data. Current Interpretive Data was last revised on 2017. Testing performed by: [address] [address] Blood 01/27/2025 7:49 PM CDT 01/27/2025 7:55 PM CDT us Avila Perez DO LAB BLOOD ORDERABLES Final Res ult [id number] [place] [address] * (ABNORMAL) CBC with auto differential (01/27/2025 7:49 PM CDT) WBC 8.71 3.80 - 9.90 K/cumm Comment:Testing performed by : [address] [address] Hgb 10.4(L) 11.9 - 15.5 g/dL [facility]APPAS Comment:Testing performed by : [address] [address] Hct 30.6(L) 35.6 - 45.5 % [facility] Comment:Testing performed by : [address] [address] Plt 371 150 - 400 K/cumm [facility]AS Comment:Testing performed by : [address] [address] MPV 9.9 9.1 - 12.3 fL [facility] Comment:Testing performed by : [address] [address] RBC 3.54(L) 3.90 - 5.20 M/cumm [facility]AS Comment:Testing performed by : [address] [address] MCV 86.4 81.3 - 96.4 fL [place] Comment:Testing performed by : [address] [address] MCH 29.4 27.1 - 33.3 pg [facility] PAPPAS Comment:Testing performed by : [address] [address] MCHC 34.0 32.3 - 35.7 g/dL [facility] Comment:Testing performed by : [address] [address] RDW CV 13.8 11.1 - 14.9 % [facility] Comment:Testing performed by : [address], [address] RDW SD 43.6 35.7 - 48.1 fL [place] Comment:Testing performed by : [address] [address] NRBC abs 0.00 0.00 - 0.01 K/cumm [facility] Comment:Testing performed by : [address], [address] Blood 01/27/2025 7:49 PM CDT 01/27/2025 7:55 PM CDT us Avila Perez DO LAB BLOOD ORDERABLES Final Res ult [facility] [address] [facility] [place] [address] * Magnesium (01/27/2025 7:49 PM CDT) Magnesium 2.0 1.4 - 2.5 mg/dL Comment:Testing performed by : [address] [address] Blood 01/27/2025 7:49 PM CDT 01/27/2025 7:55 PM CDT us Becca Donaldson [employer]LEVATOR SUPER[employer] LAB BLOOD ORDERABLES Fin al Result [facility] [address] [facility] [place] [address] * (ABNORMAL) Comprehensive metabolic panel (01/27/2025 7:49 PM CDT) Sodium 142 135 - 145 mmol/L Comment:Testing performed by : [address] [address] Potassium, pl 2.5(C) 3.3 - 4.9 mmol/L [facility] Comment: Critical Result called to and read back by [id number], DATE: 2025-01-27 20:27:18 BY: [id number] Testing performed by: [address] [address] Chloride 104 97 - 110 mmol/L [place] Comment:Testing performed by : [address] [address] CO2 24 22 - 32 mmol/L [place] Comment:Testing performed by : [address] [address] Anion gap 14 2 - 15 mmol/L [facility] Comment:Testing performed by : [address] [address] BUN 15 6 - 25 mg/dL [facility] Comment:Testing performed by : [address] [address] Creatinine 0.84 0.60 - 1.10 mg/dL [facility] Comment:Testing performed by : [address] [address] Glucose 101 70 - 199 mg/dL [facility] Comment: Interpretive Data Fasting glucose >/= 126 mg/dl is diagnostic for diabetes. Fasting is defined as no caloric intake for at least 8 hours. Fasting glucose between 100 mg/dl to 125 mg/dl is diagnostic of prediabetes. In a patient with classic symptoms of hyperglycemia or hyperglycemic crisis, a random glucose >/= 200 mg/dl is diagnostic for diabetes. In the absence of unequivocal hyperglycemia, results should be confirmed by repeat testing. The classification and Diagnosis of Diabetes Diabetes Care 202; 46: S19-S40. Current interpretive data was last revised 2022. Testing performed by: [facility], [address] [place] [address]., [address] Calcium 11.0(H) 8.5 - 10.3 mg/dL [place] Comment:Testing performed by : [address] [address] Bilirubin, total 0.4 0.1 - 1.2 mg/dL [place] Comment:Testing performed by : [address] [address] Protein, pl 7.0 6.5 - 8.5 g/dL [place] Comment:Testing performed by : [address] [address] Albumin 4.6 3.5 - 5.0 g/dL [place] Comment:Testing performed by : [address] [address] Alk phos 34(L) 40 - 130 Units/L [facility] Comment:Testing performed by : [address] [address] ALT 20 7 - 45 Units/L [place] Comment:Testing performed by : [address] [address] AST 46(H) 10 - 45 Units/L [place] Comment:Testing performed by : [address] [address] Blood 01/27/2025 7:49 PM CDT 01/27/2025 7:55 PM CDT Narrative [facility] - 01/27/2025 8:27 PM CDT Critical result called to and read back by [id number] (_) on 01/27/2025 20:27:03 CDT_ to [id number] us Avila Perez DO LAB BLOOD ORDERABLES Final Res ult [facility] [address] [facility] Department of Laboratories [place], [place] [id number] * ECG 12 lead (01/27/2025 7:48 PM CDT) Ventricular Rate EKG/Min 68 BPM [facility] Atrial Rate 68 BPM [facility] MA-Interval (MSEC) 132 ms [facility] QRS-Interval (MSEC) 88 ms [facility] QT-Interval (MSEC) 340 ms [facility] QTc 361 ms [facility] P [place] 17 degrees [facility] R [place] 58 degrees [facility] T [place] -86 degrees [facility] Diagnosis Normal sinus rhythm ST & T wave abnormality, consider inferolateral ischemia Artifacts Abnormal ECG No previous ECGs available Confirmed by ELANA MAGALLANES M.D. ([id number]) on 01/29/2025 9:25:40 AM [facility] 01/27/2025 7:48 PM CDT 01/29/2025 9:25 AM CDT us Avila Perez DO ECG ORDERABLES Final Result [facility] * eGFR (01/27/2025 12:30 PM CDT) Pathologist [facility] eGFR 69 >=60 mL/min/1. 73 m2 Comment: Interpretive Data Reference Interval Normal >/= 90 mL/min/1.73m2 Mildly decreased* 60 - 89 mL/min/1.73m2 Mildly to moderately decreased 45 - 59 mL/min/1.73m2 Moderately to severely decreased 30 - 44 mL/min/1.73m2 Severely decreased 15 - 29 mL/min/1.73m2 Kidney Failure < 15 mL/min/1.73m2 *Relative to young adult level Estimated glomerular filtration rate is determined by the 2020 CKD-EPI equation recommended by the National Kidney Foundation (A Unifying Approach to GFR Estimation: Recommendations of the NKF-ASK Task Force on Reassessing the Inclusion of Race in Diagnosing Kidney Disease, JASN 202). The CKD-EPI equation should not be used for patients with unstable renal function and has not been validated in children and those over 70. Current interpretive data was last reviewed 2021. Blood 01/27/2025 12:3 0 PM CDT 01/27/2025 1:11 PM CDT us Karen Soria MD LAB BLOOD ORDERABLES Final Result [facility] Department [place] [address] * Differential, auto (01/27/2025 12:30 PM CDT) Neutrophil abs 4.11 1.50 - 6.50 K/cumm Imm gran abs 0.03 0.00 - 0.10 K/cumm [facility] Lymphocyte abs 2.22 0.80 - 3.30 K/cumm [facility] Monocyte abs 0.68 0.20 - 0.80 K/cumm [facility] Eosinophil abs 0.11 0.00 - 0.50 K/cumm [facility] Basophil abs 0.07 0.00 - 0.10 K/cumm [facility] Neutrophil pct 57.0 % [facility] Comment: Interpretive Data Percent cell count reference ranges are not reported, since discordance with absolute values may lead to misinterpretation of CBC data. Current Interpretive Data was last revised on 2017. Imm gran pct 0.4 % [facility] Comment: Interpretive Data Percent cell count reference ranges are not reported, since discordance with absolute values may lead to misinterpretation of CBC data. Current Interpretive Data was last revised on 2017. Lymphocyte pct 30.7 % [facility] Comment: Interpretive Data Percent cell count reference ranges are not reported, since discordance with absolute values may lead to misinterpretation of CBC data. Current Interpretive Data was last revised on 2017. Monocyte pct 9.4 % [facility] Comment: Interpretive Data Percent cell count reference ranges are not reported, since discordance with absolute values may lead to misinterpretation of CBC data. Current Interpretive Data was last revised on 2017. Eosinophil pct 1.5 % [facility] Comment: Interpretive Data Percent cell count reference ranges are not reported, since discordance with absolute values may lead to misinterpretation of CBC data. Current Interpretive Data was last revised on 2017. Basophil pct 1.0 % [facility] Comment: Interpretive Data Percent cell count reference ranges are not reported, since discordance with absolute values may lead to misinterpretation of CBC data. Current Interpretive Data was last revised on 2017. Blood 01/27/2025 12:3 0 PM CDT 01/27/2025 1:11 PM CDT Karen Soria MD LAB BLOOD ORDERABLES Final Result Performing Organization Address City/[facility] Co de Phone Number [facility] [place] [address] * Critical Result Callback Chemistry (01/27/2025 12:30 PM CDT) Date Notified [id number] Time Notified 1708 [facility]AH TestName Potassium Plas [facility] Called/Read Back Karen FRYE Credentials MD [place] [facility] Called By PD [place] [facility] Blood 01/27/2025 12:3 0 PM CDT 01/27/2025 1:11 PM CDT Karen Soria MD LAB BLOOD ORDERABLES Final Result Performing Organization Address [facility] [place] [address] * (ABNORMAL) Urinalysis reflex to microscopic and culture Urine (01/27/2025 12:30 PM CDT) Color, ur Yellow Yellow Clarity, ur Turbid(A) Clear [facility] Specific gravity, ur 1.017 1.003 - 1.030 [place] SHAH pH, urine 7.0 [facility] Comment: Interpretive Data U rine pH is affected by diet, medications, systemic acid-base disturbances, and renal tubular function. pH may affect urinary stone formation. For example, urine pH below 6.0 may help reduce the tendency for calcium phosphate stones and pH greater than 6.0 may reduce the tendency for uric acid stone formation. Source: [facility] Current Interpretive Data was last revised on 2017 Protein, ur ql 2+(A) Negative [facility] Glucose, ur ql Negative Negative [facility] Ketones, ur Negative Negative [facility] Bilirubin, ur Negative Negative [facility] Blood, ur 2+(A) Negative [facility] Urobilinogen, ur <2.0 <2.0 mg/dL [facility] Nitrite, ur Negative Negative [facility] Leukocyte esterase, ur 2+(A) Negative [facility] UA reflex comment Reflex to microscopic UA will be performed. [facility] Urine 01/27/2025 12:3 0 PM CDT 01/27/2025 12:52 PM CDT Karen Soria MD LAB MICROBIOLOGY - G ENERAL ORDERABLES Final Result [facility] Department [place] [address] * (ABNORMAL) CBC with auto differential (01/27/2025 12:30 PM CDT) WBC 7.22 3.80 - 9.90 K/cumm Hgb 10.7(L) 11.9 - 15.5 g/dL [facility] Hct 30.7(L) 35.6 - 45.5 % [facility] Plt 353 150 - 400 K/cumm [facility] MPV 10.3 9.1 - 12.3 fL [facility] RBC 3.59(L) 3.90 - 5.20 M/cumm [facility] MCV 85.5 81.3 - 96.4 fL [facility] MCH 29.8 27.1 - 33.3 pg [facility] MCHC 34.9 32.3 - 35.7 g/dL [facility] RDW CV 14.0 11.1 - 14.9 % [facility] RDW SD 43.8 35.7 - 48.1 fL [facility] NRBC abs 0.00 0.00 - 0.01 K/cumm [facility] Blood 01/27/2025 12:3 0 PM CDT 01/27/2025 1:11 PM CDT Karen Soria MD LAB BLOOD ORDERABLES Final Result Performing Organization Address City/[facility]/ZIP Co de Phone Number [facility] [place] [address] * Ceruloplasmin (01/27/2025 12:30 PM CDT) Ceruloplasmin 24.0 16.0 - 45.0 mg/dL Blood 01/27/2025 12:3 0 PM CDT 01/27/2025 1:11 PM CDT Karen Soria MD LAB BLOOD ORDERABLES Final Result Performing Organization Address [facility] Co de Phone Number [facility] Department [place] [address] * (ABNORMAL) Urinalysis, microscopic only (01/27/2025 12:30 PM CDT) WBC, ur 11-20(A) 0 - 5 /HPF RBC, ur >50(A) 0 - 2 /HPF [facility] Epithelial cells, squamous, ur 1-5 0 - 5 /HPF [facility] Mucous, ur Present(A) [facility] Amorphous crystals, ur 3+(A) [facility] Hyaline casts, ur 6-10 0 - 10 /LPF [facility] Culture Reflex Comment Reflex to urine culture will be performed. [facility] Urine 01/27/2025 12:3 0 PM CDT 01/27/2025 12:52 PM CDT Karen Soria MD LAB URINE ORDERABLES Final Result Performing Organization Address City/[facility]/ZIP Co de Phone Number [facility] Department [place] [address] * Urine culture Urine (01/27/2025 12:30 PM CDT) Pathologist [facility] Report Final Report: Less than 100,000 colonies/mL (clinically insignificant growth based on current clinical standards) Organism (CLINICALLY INSIGNIFICANT GROWTH [facility] Urine 01/27/2025 12:3 0 PM CDT 01/27/2025 1:25 PM CDT Narrative [facility] - 01/28/2025 2:25 PM CDT Urine culture reflexed based upon urinalysis results. Testing performed by [facility] ([phone]) Karen Soria MD LAB MICROBIOLOGY - G ENERAL ORDERABLES Final Result Performing Organization Address [facility]/ZIP Co de Phone Number [facility] [place] [address] * Magnesium (01/27/2025 12:30 PM CDT) [facility] Magnesium 2.0 1.4 - 2.5 mg/dL Blood 01/27/2025 12:3 0 PM CDT 01/27/2025 1:11 PM CDT Karen Soria MD LAB BLOOD ORDERABLES Final Result Performing Organization Address City/[facility]/ZIP Co de Phone Number [facility] [place] [address] * (ABNORMAL) Comprehensive metabolic panel (01/27/2025 12:30 PM CDT) [facility] Sodium 143 135 - 145 mmol/L Comment:Repeated and Verifie d Potassium, pl 2.3(C) 3.3 - 4.9 mmol/L [facility] Comment:Repeated and Verifie d Chloride 105 97 - 110 mmol/L [facility] CO2 26 22 - 32 mmol/L [facility] Anion gap 12 2 - 15 mmol/L [facility] Comment:Reviewed BUN 13 6 - 25 mg/dL [facility] Creatinine 1.00 0.60 - 1.10 mg/dL [facility] Glucose 101 70 - 199 mg/dL [facility] Comment: Interpretive Data Fasting glucose >/= 126 mg/dl is diagnostic for diabetes. Fasting is defined as no caloric intake for at least 8 hours. Fasting glucose between 100 mg/dl to 125 mg/dl is diagnostic of prediabetes. In a patient with classic symptoms of hyperglycemia or hyperglycemic crisis, a random glucose >/= 200 mg/dl is diagnostic for diabetes. In the absence of unequivocal hyperglycemia, results should be confirmed by repeat testing. The classification and Diagnosis of Diabetes Diabetes Care 2021; 46: S19-S40. Current interpretive data was last revised 2022. Calcium 10.8(H) 8.5 - 10.3 mg/dL [facility] Bilirubin, total 0.5 0.1 - 1.2 mg/dL [facility] Protein, pl 7.2 6.5 - 8.5 g/dL [facility] Albumin 4.6 3.5 - 5.0 g/dL [facility] Alk phos 35(L) 40 - 130 Units/L [facility] ALT 18 7 - 45 Units/L [facility] AST 46(H) 10 - 45 Units/L [facility] Blood 01/27/2025 12:3 0 PM CDT 01/27/2025 1:11 PM CDT Karen Soria MD LAB BLOOD ORDERABLES Final Result [facility] Department [place] [address] * US Pelvis W Endovaginal (12/29/2024 9:53 AM CDT) Endometrial Thickness 7.7 mm&millime ters [facility] Anatomical Region Laterality Modality Pelvis N/A Ultrasound 12/29/2024 10:2 3 AM CDT Impressions 01/02/2025 9:14 AM CDT Normal sized uterus. Myometrium notable for two myomas, one of which is starting to involve the endometrium. Heterogeneous endometrium and endocervical lining with several areas of calcification concerning for polyps. Normal appearing left ovary Limited images of the right ovary. Hyperechoic tissue directly adjacent to ovarian tissue. Narrative Procedure Note Chetna Roblero MD - 01/02/2025 IMPRESSION: Normal sized uterus. Myometrium notable for two myomas, one of which isstarting to involve the endometrium. Heterogeneous endometrium andendocervical lining with several areas of calcification concerning forpolyps. Normal appearing left ovary Limited images of the right ovary. Hyperechoic tissue directly adjacent toovarian tissue. Chetna Roblero MD [facility] US PROCEDURES Final Re sult * Pap and High Risk HPV and Genotyping (Cytology Component) (11/24/2024 10:29 AM CDT) Endocervical (Pap test) 11/24/2024 10:29 AM CDT 11/24/2024 6:02 PM CDT Narrative PATHOLOGY [facility] - 12/01/2024 10:46 AM CDT EPIC results best viewed via link to PDF [facility] Keturah Dejesus [facility] [place] [address] Note to Patients: This report may contain a detailed description of human tissue sent by a health care provider to the laboratory for pathologic evaluation. The content of this report is essential for diagnosis and may provide important critical findings. This information may be unfamiliar to patients to review without a medical professional present. It is advised that the patient review this report in the presence of a health care provider who can answer questions and explain the details. CYTOPATHOLOGY REPORT FINAL Patient Name: ANGELI PEREZ Gender: F : 1975 (Age: 49) Address: [address] [place] [id number] N: [id number] [facility] #: [id number] Service: DEFAULT Location: Patient Type: [facility] SPECIMEN Taken: 11/24/2024 Received: 11/24/2024 Accessioned: 11/25/2024 Reported: 12/01/2024 Physician(s): Jyoti Roblero M.D. FINAL INTERPRETATION SOURCE OF SPECIMEN Liquid based Thin Prep pap with HPV: STATEMENT OF ADEQUACY - Satisfactory for evaluation - Endocervical cells/transformation zone sample absent GENERAL CATEGORIZATION: - Negative for squamous intraepithelial lesion or malignancy Comments (Normal-Negative for High Risk HPV) HPV HR 16- Not detected HPV HR 18-Not detected HPV HR non 16/18- Not detected Interpretive Data Nucleic acid amplification for detection of high-risk Human Papilloma virus (HPV) is performed by the Keshawn Oriana 6800 HPV test. This assay specifically detects HPV- 16 and HPV-18 genotypes. The following HPV genotypes are detected as high-risk HPV: HPV-31, 33, 35, 39, 45, 51, 52, 56, 58, 59, 66, and 68. This assay has been approved by the [place] Food and Drug Administration for detection of HPV in cervical specimens collected by a physician using an endocervical brush/spatula or cervical broom and placed in the ThinPrep Pap Test PreservCyt collection containers. The performance characteristics of this test have been verified by the [facility] Molecular Infectious Disease laboratory. Correlate with reported cytology results, as applicable. Interpretive data last revised 22 [facility]/12/01/2024 10:46 WARREN Santiago(ASCP) Report Electronically Reviewed and Signed Out By WARREN Santiago(ASCP) 12/01/2024 10:46:33 Cervicovaginal Cytology (Pap Test) Disclaimer: The Pap test is a screening test used to detect cervical cancer and its precursors; it is not a diagnostic procedure. False negative and false positive results do occur. Pap test results should be interpreted in the context of pertinent clinical information and biopsy results as indicated. CMS Clinical Laboratory Improvement Amendments (CLIA) mandate that cytologic and histologic results be correlated for laboratory quality control microbiology supervisor & improvement standards. FOR ALL HIGH-GRADE CASES we request submission of follow-up histological material and/or reports that have not been previously provided so that we may fulfill said required standards. Gross Description A. Liquid based Thin Prep pap with HPV: Cervical/vaginal - Screening ThinPrep Clinical Diagnosis and History Last Menstrual Period: 11/08/2024 The patient is a 49 year old female with routine screening. Report Images and scanned documents, if included only viewable in PDF version The performance characteristics of some immunohistochemical stains, in-situ hybridization and fluorescence in-situ hybridization tests and immunophenotyping by flow cytometry cited in this report (if any) were determined by the Surgical Pathology Department at [facility] as part of an ongoing quality lab technician program and in compliance with federally mandated regulations drawn from the Clinical Laboratory Improvement Act of 1988 (CLIA '88). Some of these tests rely on the use of analyte specific reagents and are subject to specific labeling requirements by the [place] Food and Drug Administration. Such diagnostic tests may only be performed in a facility that is certified by the Department of Health and Human Services as a high complexity laboratory under CLIA '88. The FDA has determined that such clearance or approval is not necessary. This test is used for clinical purposes. It should not be regarded as investigational or for research. Nevertheless, federal rules concerning the medical use of analyte specific reagents require that the following disclaimer be attached to the report: This test was developed and its performance characteristics determined by the Surgical Pathology Department of [facility]. It has not been cleared or approved by the U. S. Food and Drug Administration. Chetna Roblero MD LAB CYTOLOGY ORDERABLES nal Result PATHOLOGY [facility] * Diagnostic Mammogram Bilateral W Speedy (05/16/2024 9:20 AM GLASS VIAL BENDING CONVEYOR FEEDER) Anatomical Region Laterality Modality Breast Bilateral Mammography 05/16/2024 9:30 AM GLASS VIAL BENDING CONVEYOR FEEDER Narrative 05/16/2024 9:36 AM GLASS VIAL BENDING CONVEYOR FEEDER EXAM DESCRIPTION: DIAGNOSTIC MAMMOGRAM BILATERAL W SPEEDY [...] by Miguel Gu M.D. 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
[2025-03-16 11:04] VITALS: BP 112/75; PULSE 69; RESP 14; TEMP 36.1; O2SAT 100; BMI 17.9
[2025-03-16 11:19] LABS: BEDSIDEPREGUCG Negative (Negative)
[2025-03-16] MEDS: LACTATED RINGERS 1,000 ML 150 ML IV CONT (11:25)
--- NOTE | 2025-03-16 11:40 | P.PNAN_ITS ---
Anes - Initial Pre Proc Eval Procedure: Operation Date: 03/16/25 11:45 Proposed Procedures p Esophagogastroduodenoscopy EGD - Parrish Gonzalez MD Date/Time: 03/16/25 11:40 Surgeon: Parrish Gonzalez MD Pre Op Diagnosis: Abnormal weight loss, Dysphagia, unspecified Patient Data Age: 49 Gender: F Height: 1.7 m Weight: 52.1 kg Last Vital Signs Temp 36.1 C L 03/16/25 11:04 Pulse 69 03/16/25 11:04 Resp 14 03/16/25 11:04 BP 112/75 03/16/25 11:04 Pulse Ox 100 03/16/25 11:04 O2 Del Method Room Air 03/16/25 11:04 Allergies Allergy/AdvReac Type Severity Reaction Status Date / Time BEE STING Allergy Severe Anaphylactic Uncoded 02/02/25 10:28 Shock Home Medications ?Medication ?Instructions ?Recorded ?Confirmed ?Type albuterol sulfate 90 mcg/actuation 1 puff inhalation Q 4H PRN asthma 07/14/22 03/04/25 History aerosol inhaler cetirizine 10 mg tablet (All Day 10 mg PO DAILY PRN as thma 07/14/22 03/04/25 History Allergy (cetirizine)) magnesium oxide 250 mg PO DAILY 07/14/22 History bupropion HCl 100 mg tablet 100 mg PO BID 07/20/23 History epinephrine 0.1 mg/0.1 mL 0.1 ml subcut PRN PRN 03/16/25 History injection, auto-injector hypersensitivity reaction multivitamin with minerals-folic 1 tablet PO DAILY 06/1303/16/25 History acid 120 mcg chewable tablet (Adult Multivitamin Gummies) rasagiline 1 mg tablet 1 mg PO DAILY 07/20/2303/16 History venlafaxine 225 mg tablet,extended 225 mg PO DAILY #30 tabs 07/20/23 03/16/25 Rx release 24 hr atogepant 30 mg tablet (Qulipta) 30 mg PO DAILY 03/16/25 History topiramate 50 mg tablet See Rx Instructions .Route 0 07/23/24 03/16/25 Rx .COMPLEX #60 tabs fenofibrate 160 mg tablet See Rx Instructions .Route 0 08/25/24 03/16/25 Rx .COMPLEX #90 tabs carbidopa 25 mg-levodopa 100 mg 1 tablet PO TID #100 t abs 09/26/24 03/16/25 Rx tablet (Sinemet) quetiapine 25 mg tablet 25 mg PO HS 02/02/25 5 History Laboratory Tests 03/16/25 11:18 POC Urine HCG, Qual Negative (Negative) Patient hx anesthesia problems: none Family hx anesthesia problems: none Results Review: All pre-operative results and documents have been reviewed as part of the pre- operative evaluation. [facility]LY [facility], [facility] Past Medical History Medical History Asthma Migraines GERD (gastroesophageal reflux disease) Parkinson disease Allergic rhinitis, unspecified Generalized anxiety disorder Hyperlipidemia, unspecified Family History Family History Father Hypertension Carcinoma of colon Hypothyroidism Diabetes mellitus Hyperlipidemia Mother Atrial fibrillation Grandparent Cerebrovascular accident Hypertension Hyperlipidemia Pneumonia Social History Social History Smoking packs per day: 0.5 Smoking cigarettes per day: 10.0 Years smoked: 9 Smoking pack-years: 4.50 Smoking status: Former smoker Tobacco type: cigarettes Second hand tobacco smoke exposure: No Alcohol intake: never Drinks per week: 7 Substance use: never Substance use type: does not use Do You Feel Safe in your Home?: Yes Lack of Transportation: No Lack of Food: Never True Current Housing: I Have Housing Concerned About Future Housing: No Difficulty Paying Gas/Electric Bills: No Difficulty Paying for Meds: No Currently Unemployed: No Education: Bachelor's Degree Difficulty w/ Childcare or Family Care: No Living arrangements: with family Occupation/Education: occupation Gender identity (if verbalized by the patient): Female Sexual Orientation (if Verbalized by the Patient): Straight or Heterosexual Spiritual care concerns: No Anes - Eval Final PreProcedure Day of Procedure 03/16/25 11:40 Patient weight: thin Heart: regular rate and rhythm Lungs: clear to auscultation Airway: Mallampati scale class II Neurological: alert and oriented Last oral intake: >/= 8 hours ASA classification: III Emergent: no Anesthetic plan: proceed Anesthesia type and monitoring: general GIVS and standard monitoring Results Review: All pre-operative results and documents have been reviewed as part of the pre- operative evaluation. Informed Consent: The patient's anesthetic plan and its attendant risks and benefits were discussed with the patient/family/POA. Questions were solicited and answers provided to the satisfaction of the patient/family/POA.
--- NOTE | 2025-03-16 11:52 | PM.HPGS ---
History of Present Illness History of Present Illness Consent: Risks, benefits, and alternatives have been discussed and questions answered. Patient agrees to proceed with procedure. Chief complaint: Abnormal weight loss, Dysphagia, unspecified Narrative: Angeli Perez is a 49 year old female here for first egd, intermittent choking after drinking/eating Review of Systems Review of Systems: All systems reviewed & are unremarkable except as noted in HPI and below PMFSH Past Medical History Medical History (Updated 03/16/25 @ 11:53 by Parrish Gonzalez MD) Choking Asthma Migraines GERD (gastroesophageal reflux disease) Parkinson disease Allergic rhinitis, unspecified Generalized anxiety disorder Hyperlipidemia, unspecified Family History Family History Father Hypertension Carcinoma of colon Hypothyroidism Diabetes mellitus Hyperlipidemia Mother Atrial fibrillation Grandparent Cerebrovascular accident Hypertension Hyperlipidemia Pneumonia Social History Social History Smoking packs per day: 0.5 Smoking cigarettes per day: 10.0 Years smoked: 9 Smoking pack-years: 4.50 Smoking status: Former smoker Tobacco type: cigarettes Second hand tobacco smoke exposure: No Alcohol intake: never Drinks per week: 7 Substance use: never Substance use type: does not use Do You Feel Safe in your Home?: Yes Lack of Transportation: No Lack of Food: Never True Current Housing: I Have Housing Concerned About Future Housing: No Difficulty Paying Gas/Electric Bills: No Difficulty Paying for Meds: No Currently Unemployed: No Education: Bachelor's Degree Difficulty w/ Childcare or Family Care: No Living arrangements: with family Occupation/Education: occupation Gender identity (if verbalized by the patient): Female Sexual Orientation (if Verbalized by the Patient): Straight or Heterosexual Spiritual care concerns: No Meds Home Medications and Allergies Home Medications ?Medication ?Instructions ?Recorded ?Confirmed ?Type albuterol sulfate 90 mcg/actuation 1 puff inhalation Q4H PRN asthma 07/14/22 03/04/25 History aerosol inhaler cetirizine 10 mg tablet (All Day 10 mg PO DAILY PRN asthma 07/14/22 03/04/25 History Allergy (cetirizine)) magnesium oxide 250 mg PO DAILY 07/14/22 03/16/25 History bupropion HCl 100 mg tablet 100 mg PO BID 07/20/23 03/16/25 History epinephrine 0.1 mg/0.1 mL 0.1 ml subcut PRN PRN 07/20/23 03/16/25 History injection, auto-injector hypersensitivity reaction multivitamin with minerals-folic 1 tablet PO DAILY 07/20/23 03/16/25 History acid 120 mcg chewable tablet (Adult Multivitamin Gummies) rasagiline 1 mg tablet 1 mg PO DAILY 07/20/23 03/16/25 History venlafaxine 225 mg tablet,extended 225 mg PO DAILY #30 tabs 07/20/23 03/16/25 Rx release 24 hr atogepant 30 mg tablet (Qulipta) 30 mg PO DAILY 07/23/24 03/16/25 History topiramate 50 mg tablet See Rx Instructions .Route 07/23/24 03/16/25 Rx .COMPLEX #60 tabs fenofibrate 160 mg tablet See Rx Instructions .Route 08/25/24 03/16/25 Rx .COMPLEX #90 tabs carbidopa 25 mg-levodopa 100 mg 1 tablet PO TID #100 tabs 09/26/24 03/16/25 Rx tablet (Sinemet) quetiapine 25 mg tablet 25 mg PO HS 02/02/25 03/16/25 History Allergies Allergy/AdvReac Type Severity Reaction Status Date / Time BEE STING Allergy Severe Anaphylactic Uncoded 02/02/25 10:28 Shock Vital Signs Vital Signs - 24 hr 03/16/25 11:04 Temperature 96.9 F L Pulse Rate 69 Respiratory Rate 14 Blood Pressure 112/75 Pulse Oximetry 100 Oxygen Delivery Room Air Exam Const: General: comfortable and no acute distress HENMT: Face/Nose/Sinus: Normal nares present Eyes: General: appearance normal, both eyes and all related structures Neck: Neck: no JVD Resp: Auscultation: clear to auscultation bilaterally Cardio: Rate: regular rate Rhythm: regular rhythm GI: Inspection: non-distended GI Palp: Yes Soft to palpation Skin: General skin exam: normal color Extrem: General: normal to inspection Psych: Mental Status: mental status grossly normal Assessment and Plan Assessment and plan (1) Choking: Code(s): T17.308A - Unspecified foreign body in larynx causing other injury, initial encounter Status: Acute Assessment and Plan: egd with bx
--- NOTE | 2025-03-16 11:58 | S_PTH ---
PATIENT: Angeli Perez LOC: [facility]#:[id number] AGE/SX: 49/F ROOM: RE03/16/[address]: Parrish Gonzalez MD : 1975 BED: DIS: 03/16/2025 SPEC #: [id number] RECD: 03/16/25 12:49 STATUS: CHELITA REBhupinder #: [id number] BAYLEE: 03/16/25 11:[address]: Parrish Gonzalez DEPT: [facility] Surgical RECD BY: Carmelo Fitzgerald ENTERED: 03/16/25 12:50 SP TYPE: Surgical OTHR DR: Arthur Coreas MD Tissues: A - Small Bowel Bx B - Gastric Biopsy C - Esophageal Biopsy Procedures: Hematoxylin and Eosin Stain Gross and Microscopic Level 4
[2025-03-16 12:06] VITALS: BP 80/38; PULSE 68; RESP 15; O2SAT 100
[2025-03-16 12:16] VITALS: BP 99/55; PULSE 66; RESP 20; O2SAT 100
[2025-03-16 12:26] VITALS: BP 113/53; PULSE 70; RESP 20; O2SAT 100
== END 2025-03-16 12:40 | disposition home or self-care (01) ==
PROVIDERS: Anesthesiology; PCP Family Medicine; Visit Provider Internal Medicine Gastroenterology
PROC: 0DJ08ZZ Inspection of Upper Intestinal Tract, Via Natural or Artificial Opening Endoscopic (ICD-10-PCS; CPT 43239; principal; 2025-03-16 11:45)
DX: K21.00 Gastro-esophageal reflux disease with esophagitis, without bleeding (principal); K31.84 Gastroparesis; E78.5 Hyperlipidemia, unspecified; J45.909 Unspecified asthma, uncomplicated; F41.9 Anxiety disorder, unspecified; G20.A1 Parkinson's disease without dyskinesia, without mention of fluctuations; Z79.51 Long term (current) use of inhaled steroids; Z87.891 Personal history of nicotine dependence; Z80.0 Family history of malignant neoplasm of digestive organs; Z82.49 Family history of ischemic heart disease and other diseases of the circulatory system
CPT/HCPCS: 43239; 88305; J2003; J2704; J7120

== ENCOUNTER 2025-04-06 08:24 | Outpatient (CLI) | payer OTHER, BC, SELFPAY ==
--- NOTE | ~2025-04-06 | NM_ITS ---
EXAM: NM gastric emptying study DATE: 04/06/2025 13:58 INDICATION: Unspecified foreign body in larynx. Gastric retention identified on endoscopy. TECHNIQUE: A gastric emptying study was performed using the methodology of Leroy LAGUERRE, et al. J Nucl Med 2007; 48:568-572. The patient was given a meal consisting of 2 scrambled eggs labeled with mCi Tc-99m sulfur colloid, 2 slices of toast, two packages of jam, and approximately 120 mL of water. Simultaneous anterior and posterior 1-min images of the abdomen were obtained with the patient supine at multiple time points over a total period of 4 hours. The geometric mean of anterior and posterior views was determined, and the percentage retention was calculated for each time point. COMPARISON: None. FINDINGS: Gastric retention of the radiotracer-labeled meal was 61%, 27%, and 3% at the 1- hour, 2-hour, and 4-hour time points, respectively. With this technique, apparent rapid gastric emptying is suggested by <30% gastric retention at 1 hour. Delayed gastric emptying is defined by gastric retention of >90% at 1 hour, >60% retention at 2 hours, or >10% retention at 4 hours. IMPRESSION: 1. Normal gastric emptying. Reviewed, dictated and finalized at location A. E DRILLER IMPRESSION: 1. Normal gastric emptying.
== END 2025-04-06 08:25 | disposition home or self-care (01) ==
PROVIDERS: PCP Family Medicine; Visit Provider Internal Medicine Gastroenterology
DX: T17.308A Unspecified foreign body in larynx causing other injury, initial encounter (principal)
CPT/HCPCS: 78264; A9541